=== PATIENT | female | born 1990 | race Caucasian/White ===

== ENCOUNTER 2022-07-21 15:14 | Outpatient (CLI) | payer BC, SELFPAY ==
--- NOTE | 2022-07-21 15:00 | USCV_ITS ---
Susana Ramos Age: 32 Gender: F : 1990 Exam Date: 07/21/2022 15:30 Ordering Phys: Lizette Del Rio MD ([email or web address]) Technologist: Jose Murry Exam Location: [facility] Indication: Pots syndrome, arrthymia BP: 100 / 60 HR: 64 Rhythm: Sinus Technical Quality: Good MEASUREMENTS (Male / Female) Normal Values 2D ECHO LV Diastolic Diameter PLAX 4.0 cm 4.2 - 5.9 / 3.9 - 5.3 cm LV Systolic Diameter PLAX 2.7 cm IVS Diastolic Thickness 0.9 cm 0.6 - 1.0 / 0.6 - 0.9 cm IVS Systolic Thickness 1.1 cm LVPW Diastolic Thickness 1.0 cm 0.6 - 1.0 / 0.6 - 0.9 cm LVPW Systolic Thickness 1.5 cm LVOT Diameter 1.8 cm LV Ejection Fraction 2D Teich 61.4 % LV Ejection Fraction MOD 2C 73.9 % LV Ejection Fraction 2C AL 74.4 % LA Diameter 2.9 cm IVC Diameter 1.4 cm M-MODE Aortic Annulus Diameter 3.3 cm LA Ao Ratio MM 1.0 MV E Point Septal Separation 0.9 cm DOPPLER AV Peak Velocity 97.0 cm/s LVOT Peak Velocity 90.0 cm/s AV Area Cont Eq vti 2.2 cm squared AV Area Cont Eq pk 2.5 cm squared MV Area PHT 5.0 cm squared Mitral E to A Ratio 1.2 MV E' Velocity 43.5 cm/s Mitral E to MV E' Ratio 4.2 Mitral E to LV E' Lateral Ratio 4.0 Mitral E to LV E' Septal Ratio 4.3 TR Peak Velocity 266.0 cm/s TR Peak Gradient 28.3 mmHg TV Peak E Velocity 95.0 cm/s Right Atrial Pressure 3.0 mmHg Pulmonary Artery Systolic Pressu 31.3 mmHg RV Acceleration Time 0.2 s FINDINGS Left Ventricle Normal left ventricular size, systolic function and wall thickness, with no regional wall motion abnormalities. Left ventricular ejection fraction is estimated at 65 %. Normal diastolic function. Right Ventricle Normal right ventricular size and systolic function. Right ventricular systolic pressure 31.3 mmHg. Right Atrium Normal right atrial size. Left Atrium Normal left atrial size. Mitral Valve Structurally normal mitral valve. No mitral valve stenosis. No mitral valve regurgitation. Aortic Valve Structurally normal trileaflet aortic valve. No aortic valve stenosis. No aortic valve regurgitation. Tricuspid Valve Structurally normal tricuspid valve. No tricuspid valve stenosis. Trace tricuspid valve regurgitation. Pulmonic Valve Structurally normal pulmonic valve. No pulmonary valve stenosis. No pulmonary valve regurgitation. Pericardium No pericardial effusion. Aorta Normal size aortic root and proximal ascending aorta. IVC Normal IVC dimension with >50% respiratory change of the inferior vena cava. CONCLUSIONS 1. Normal left ventricular size, systolic function and wall thickness, with no regional wall motion abnormalities. Left ventricular ejection fraction is estimated at 65 %. Normal diastolic function. 2. Normal right ventricular size and systolic function. 3. No significant valvular abnormality. 4. No prior similar studies to compare. Lizette Del Rio MD (Electronically Signed) Final Date: 23 July 2022 05:58 S
== END 2022-07-21 15:15 | disposition home or self-care (01) ==
PROVIDERS: PCP Nurse Practitioner Family; Visit Provider Internal Medicine Cardiovascular Disease
DX: R06.02 Shortness of breath (principal); I49.9 Cardiac arrhythmia, unspecified; G90.A Postural orthostatic tachycardia syndrome [POTS]
CPT/HCPCS: 93306

== ENCOUNTER 2025-02-07 16:45 | Emergency (ER) | payer OTHER, SELFPAY ==
--- OUTSIDE RECORDS SUMMARY | 2014-01-11 19:00 | XMS_ITS | Continuity of Care Document ---
Author Organization [facility] Address [address] [place] [address] Phone Care Team Providers Care It Help Desk Manager Name Role Phone Chinedu De Oliveira MD Unavailable Unavailable Procedures Procedure Date EMERGENCY DEPT VISIT EMERGENCY DEPT VISIT ANTEPARTUM VISIT HOSPITAL DISCHARGE DAY INPATIENT CONSULTATION HOSPITAL DISCHARGE DAY SUBSEQUENT HOSPITAL CARE SUBSEQUENT HOSPITAL CARE INPATIENT CONSULTATION INITIAL PREG RELATED VISIT INITIAL ASSESSMENT FOLLOW UP NUTRITION CLIENT ORIENTATION TB INTRADERMAL TEST EMERGENCY DEPT VISIT Advance Directives Directive Yes / No Effective Date File Name No Information Encounters Encounter Description Practice Location Reason(s) For Visit Diagnoses Date Provider Providers Copied on Encounter EMERGENCY DEPT VISIT [facility], [address], [place], [id number], [place] tel:[phone] [facility] No Information Yennifer Che. [address], [place], [id number], [place]. tel:[phone] [address] DEPT VISIT [facility], [address] [facility], [place], [id number], [place] tel:[phone] [facility] No Information Garrett Roberson. [address], [place], [id number], [place]. tel:[phone] [facility], [address], [place], [id number], [place] tel:[phone] [facility] No Information Mark Brown. [address], [place], [place], [id number], [place]. tel:[phone]GE DAY [facility], [address], [place], [id number], [place] tel:[phone] [facility] In Patient No Information Chin Cuellar. [address], [place], [place], [id number], [place]. tel:[phone] [facility], [address], [place], [id number], [place] tel:[phone] [facility] In Patient No Information Mark Brown. [address], [place], [id number], [place]. tel:[phone] [address]PITAL CARE [facility], [address], [place], [id number], [place] tel:[phone] [facility] In Patient No Information Chin Cuellar. [address], [place], [place], [id number], [place]. tel:[phone] Referring Provider: Alisa Neely, [address], [place], [address]. tel:[phone] [facility], [address], [place], [id number], [place] tel:[phone] [facility] In Patient No Information Chin Cuellar. [address], [place], [place], [id number], [place]. tel:[phone] Referring Provider: Alisa Neely, [address], [place], [address]. tel:[phone] [facility], [address], [place], [id number], [place] tel:[phone] [facility] No Information Mark Brown. [address] [facility], [place], [id number], [place]. tel:[phone] Referring Provider: Stephanie Flores, [address], [place], [address]. tel:[phone]PT VISIT [facility], [address] [facility], [place], [id number], tel:[phone] [facility] No Information Thalia Maria. [address] [facility] [facility], [place], [id number], [place]. tel:[phone] Family History Family Member Type Diagnosis Age At Onset No Information Payers Payer name Insurance type Covered democrat ID Authorchris arguetascott(s) [employer] [id number] Social History Type Description Quantity Date Captured Comments Sex Female Smoking Status No Information Chief Complaint And Reason For Visit No Information Reason For Referral Reason For Referral No Information History Of Present Illness Encounter Date Complaint History Of Prese nt Illness No Information Functional Status Date Functional Assessmen t No Information Instructions Date Instruction Additional Infor mation No Information Assessments Type Assessment Date No Information Patient Care Teams Name Effective Dates (start - stop) Status Members No Information
--- OUTSIDE RECORDS SUMMARY | 2025-02-02 09:19 | XMS_ITS | Encounter Summary ---
Author Organization [facility] Address [address] [place] [address] Care Team Providers Care Refrigeration Mechanic Name Role Phone Yossi Apple MD Primary Care Provider [phone] Reason for Visit * Auth/Cert (Routine) Specialty Diagnoses / Procedures Referred By Lemuel t Referred To Contact Perioperative Diagnoses Hemorrhoids, unspecified hemorrhoid type Hemorrhoids, unspecified hemorrhoid type Procedures TN HEMORRHOIDECTOMY XTRNL 2/> COLUMN/GROUP TN HEMORRHOIDECTOMY INT & XTRNL 2/> COLUMN/ELLA HEMORRHOIDECTOMY HEMORRHOIDECTOMY Óscar Lorenzo MD [address] [address] Phone: tel: fax: [facility] Operating Room [address] [place] [address] Phone: tel: fax: Referral ID Status Reason Start Date Expiration Date Visits Re quested Visits Authorized [id number] 1 1 Encounter Details Date Type Department Care Team (Latest Contact Info) Description 02/02/2025 9:19 AM CDT - 02/02/2025 1:30 PM CDT Hospital Encounter [facility] 3J Pre-Op [address] [place] [address] Óscar Lorenzo MD [address] [address] Hemorrhoids, unspecified hemorrhoid type Discharge Disposition: Home or Self Care Social History Tobacco Use Types Packs/Day Years Used Date Smoking Tobacco: Never Smokeless Tobacco: Never Alcohol Use Standard Drinks/Week Comments Never 0 (1 standard drink = 0.6 oz pur e alcohol) Comments No Sex and Gender Information Value Date Recorded Sex Assigned at Not on file 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 Gender Identity Not on file Sexual Orientation Not on file documented as of this encounter Last Filed Vital Signs Vital Sign Reading Time Taken Comments Blood Pressure 113/76 02/02/2025 1:00 PM CDT Pulse 69 02/02/2025 1:00 PM CDT Temperature 36 C (96.8 F) 02/02/2025 1:00 PM CDT Respiratory Rate 14 02/02/2025 1:00 PM CDT Oxygen Saturation 96% 02/02/2025 1:00 PM CDT Inhaled Oxygen Concentration - - Weight 61.8 kg (136 lb 3.9 oz) 02/02/2025 9:41 A M CDT Height 162.6 cm (5' 4 ) 02/02/2025 9:41 AM CDT Body Mass Index 23.39 02/02/2025 9:41 AM CDT documented in this encounter Discharge Instructions * Discharge Instructions* Diya Díaz NP - 02/02/2025 11:15 AM CDT Post-Operative Discharge Instructions If you feel you are experiencing a medical emergency - call 911 or present immediately to the nearest Emergency Department. Please follow up with SHYANN Xavier in 4 weeks, please call her office at to schedule your appointment. Typically follow up appointments are scheduled as in person visits, but if you feel that your appointment could be handled over the phone or by video chat please contact our office and we can make those arrangements. The Cue violeta can also allow you to send inquiries directly to us as well as submit pictures of wounds, etc. Often the violeta is the most efficient way to each our healthcare team. Ifyou don't have it already please search your violeta store for Cue. KEEP IN TOUCH WITH Cue Please consider using [email or web address] to communicate with Dr. Lorenzo's office. Messages are received in real time by the nurse as fast, or faster, than phone messages, and you may expect a prompt reply. DIET Return to your usual diet. It is normal not to have an appetite right after surgery - as long as you are tolerating liquids and staying hydrated, your desire for solid food will return in a few days. BOWEL FUNCTION Bowel movements should return a day or two after surgery. Pain medication can cause constipation. To avoid abdominal discomfort, take Metamucil 1 TBSP by mouth every day starting the day of surgery. If you have not had a bowel movment 2-3 days after surgery, take Milk of Magnesia 1 TBSP every 8 hours until BM occurs. Call if the above does not produce results. URINARY FUNCTION A small percentage of people who have anal or rectal surgery will temporarily have difficulty emptying their bladder. If you cannot urinate you must be seen urgently. If it is during normal business hours (8AM - 4:30PM), please call Dr. Lorenzo's office. After hours or on weekends [facility]. PAIN CONTROL Injected numbing medicine is often used in this type of surgery, the medication is designed to last2-3 days, you may notice an increase in pain as this medication wears off. Sitz baths (sitting in the bathtub with a few inches of warm water) as needed for comfort and afterBMs--may begin today Pain prescription In addition to your pain prescription you may also take ibuprofen (Advil, Motrin) 600mg every 8 hours (do not exceed one week of this medicine) ACTIVITY Avoid laying in bed, walk around! - this will help decrease the postoperative discomfort. We do not recommend the use of donut cushions to sit on, as they likely push any swelling towardsthe operative site. May return to work/school when you feel like you can adequately and safely do your job - moderate activity should not damage the surgery site. Once your pain level is tolerable you may return to work. Do not drive or operate machinery while taking pain medication. WHEN TO CALL Dr. Lorenzo @ If fever > 101.5 F OR shaking chills. Persistent nausea & vomiting that last more than a few hours and unable to keep liquids down. Some amount of intermittent bleeding is expected, for massive bleeding that does not stop go to theEmergency Department. Shortness of breath, leg(s) painful when walking or standing, leg(s) swelling or discolored. Severe constipation. WOUND CARE Apply dry dressing as needed until drainage resolves, feminine hygiene pads (even for men) can be useful for this purpose You may remove the dressing placed in the operating room for bowel movements or sitz baths as needed STITCHES You may feel sutures (stitches) on your bottom. They dissolve on their own between 1 and 6 weeks. If they are bothersome to you we can remove them at your follow-up appointment Sometimes these sutures break or the wound may open. This is rarely a problem and the wound will generally still heal well. AFTER HOURS Prescriptions are not refilled after business hours. If you are in need of additional medications, call the office on the next business day at [phone]. There is a physician on-call after hours for emergency reasons only. DO NOT SMOKE AND AVOID SECOND-HAND SMOKE. Tobacco smoke can delay the healing process by decreasingthe oxygen supply to your wound, & may increase your risk of infection. Smoking irritates the breathing passages and increases the risk of pneumonia, bronchitis, asthma and risk of blood clots. documented in this encounter Medications at Time of Discharge OTHERIndications:H emorrhoids, unspecified hemorrhoid type Sig: Apply pea sized amount (1 pump) to the rectal area 4 times daily 100 Gram 5 oxyCODONE-acetamin ophen (Percocet) 5-325 mg tabletIndications: Hemorrhoids, unspecified hemorrhoid type Take 1 Tablet by mouth every 4 hours as needed for Pain, Moderate. Max Daily Amount: 6 Tablets 30 Tablet 5 albuterol sulfate HFA 90 mcg/actuation aerosol inhaler Take 2 Puffs by inhalation every 6 hours as needed for Shortness of Breath or Wheezing. 8.5 Gram 1 5 OTHER Take by mouth daily. Turmeric Curcumin 2250mg of Organic Turmeric Curcumin 500mg of Curcuminoids Take 3 capsules daily with dinner MILK THISTLE ORAL Take 1,000 mg by mouth daily with breakfast. Dietary Supplement Capsule Take by mouth daily after lunch. Vegan K2+D3 OTHER Take 2,000 mg by mouth daily after lunch. Ascencion+D-Chiro Inositol vit E/E mix/tocotrienol/hb 122 (ADVANCED HIGH GAMMA E ORAL) Take by mouth daily with breakfast. Gamma E Take two capsles of a morning with food medical marijuana, for documentation purposes, Take 10 Tablets by mouth. Taking 3 different ones, Boost, Go & Sleep ketotifen fumarate (EYE ITCH RELIEF OP) by Ophthalmic route. EPINEPHrine (EPIPEN) 0.3 mg/0.3 mL Auto-Injector Inject 0.3 mg by subcutaneous injection see administration instructions. 4 fluticasone propionate (FLONASE) 50 mcg/spray [place], Suspension nasal inhaler Administer 1 [place] in each nostril 2 times daily. 4 SODIUM CHLORIDE ORAL Take by mouth. MAGNESIUM OXIDE ORAL Take by mouth. OTHER Skinny Bird- HUM sulfamethoxazole-t rimethoprim (BACTRIM DS) 800-160 mg tablet Take 1 Tablet by mouth 2 times daily for 7 days. 14 Tablet 5 02/07/20 25 documented as of this encounter H&P Notes * Óscar Lorenzo MD - 02/02/2025 11:08 AM CDT I have reviewed the last H&P and examined the patient today and there are no changes. documented in this encounter OR Notes * Operative Report - Óscar Lorenzo MD - 02/02/2025 8:50 PM CDT Preoperative diagnosis: Hemorrhoids Postoperative diagnosis: Mixed internal and external hemorrhoids Procedures performed: 1. Exam under anesthesia 2. Excisional hemorrhoidectomy of internal and external hemorrhoids, 3 columns Surgeon: Óscar Lorezno M.D. Dough Braker: none Anesthesia: GETA Findings: mixed hemorrhoids in the left lateral, right anterolateral, and right posterolateral positions. EBL: minimal Specimens: hemorrhoids Description of procedure: After obtaining informed consent the patient was taken to the OR, placed in a supine position and then underwent induction with general anesthesia. The patient was then flipped into the prone-jackknife position with all pressure points well padded. Tape was applied to the buttocks to provide lateral retraction and then the perineum was prepped and draped in a standard, sterile fashion. A digital rectal exam was performed and then the Marshall bi-valve retractor was used to carefully examine the anal canal. Findings as described above A perianal block with local anesthetic was performed. Internal and external hemorrhoidal groups were then removed from the left lateral, right anterolateral and right posterolateral positions. This was done using electrocautery to remove an ellipse of tissue starting just external to the anus and dissecting down to the level of the internal sphincter, which was carefully preserved, and removing the overlying hemorrhoidal cushion down into the anal canal removing the grossly redundant tissue. The defects were over-sewn with running-locking 3-0 vicryl suture. Additional redundant internal hemorrhoidal tissue was ablated with electrocautery. The anal canal was then re-examined with the Marshall bi-valve retractor, hemostasis was observed. More than ample tissue was observed between suture lines. The patient tolerated the procedure well. Óscar Lorenzo M.D. documented in this encounter Plan of Treatment Not on file documented as of this encounter Procedures Procedure Name Priority Date/Time Associated Diagnosis Comments TELEMETRY REPORT 02/04/2025 10:2 2 AM CDT PATHOLOGY Pathology 02/02/2025 11:28 AM CDT Hemorrhoids, unspecified hemorrhoid type TN HEMORRHOIDECTOMY INT & XTRNL 2/> COLUMN/ELLA 02/02/2025 10:40 AM CDT Hemorrhoids, unspecified hemorrhoid type TN HEMORRHOIDECTOMY XTRNL 2/> COLUMN/GROUP 02/02/2025 10:40 AM CDT Hemorrhoids, unspecified hemorrhoid type EKG 12-LEAD Routine 02/02/2025 10:31 AM CDT CBC WITHOUT DIFFERENTIAL Routine 025 10:28 AM CDT documented in this encounter Results * TELEMETRY REPORT (02/04/2025 10:22 AM CDT) us Provider Scanning ECG ORDERABLES Final Result * PATHOLOGY (02/02/2025 11:28 AM CDT) CASE REPORT Surgical Pathology Report Case: [id number] Authorizing Provider: Óscar Lorenzo MD Collected: 02/02/2025 11:28 AM Ordering Location: [facility] Received: 02/02/2025 12:48 PM Operating Room Pathologist: Chang Radford MD Specimen: Hemorrhoids 5 4:15 PM CDT [facility] FINAL DIAGNOSIS A. Hemorrhoids, excision - Hemorrhoids - Negative for dysplasia and malignancy Chang Radford MD [id number] 5 4:15 PM CDT [facility] at 1615 CDT GROSS DESCRIPTION A. Received in a container of formalin labeled Richard -hemorrhoids are 3 fragments of pale prado skin with underlying blood clot, measuring 3.7 x 2.6 x 1.3 cm. The specimen is serially sectioned to reveal dilated vascular structures. There are no discrete underlying lesion. Aeronautical Engineer sections are submitted in A1. Zoe Noe 5 4:15 PM CDT [facility] OPERATIVE PROCEDURE 1: HEMORRHOIDECTOMY 5 4:15 PM CDT [facility] CLINICAL INFORMATION Hemorrhoids, unspecified hemorrhoid type 5 4:15 PM CDT [facility] COMMENT The FXTrip voice-activated dictation system may have been used in the creation of this report. Inherent to this system is the possibility of errors in syntax, grammar, punctuation, or other areas that could impact interpretation. If there are interpretive questions about the report, please contact the performing pathologist. Unless gross only is specified in the diagnosis, the microscopic examination substantiates the above cited diagnosis. The performance characteristics of all immunohistochemical stains cited in this report (if any) were determined by the [facility] of [facility] in compliance with CLIA'88 regulations. Some of these tests rely on the use of analyte specific reagents and are subject to specific labeling requirements by the FDA. All controls show appropriate reactivity. This testing was developed by the [facility]. It has not been cleared or approved by the FDA. The FDA has determined that such clearance or approval is not necessary. 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 : 1990 Requested By: Order Number: [id number] Max MD: Sylwia Zepeda Measurements Intervals Ellery Rate: 60 P: 57 TN: 144 QRS: 53 QRSD: 82 T: 37 QT: 422 QTc: 422 Interpretive Statements Sinus rhythm with marked sinus arrhythmia Otherwise normal ECG Electronically Signed On 02-02-2025 19:19:16 CDT by Sylwia Zepeda Procedure Note Sylwia Zepeda MD - 02/02/[address] [address] Test Date: 2025-02-02 Pat Name: SUSANA ZAPATA Department: 12 Room: PREOP PHAS PREOP PHAS Gender: Female Riding Coach: [id number] : 1990 Requested By: Order Number: [id number] Reading MD: Sylwia Zepeda Measurements Intervals Ellery Rate: 60 P: 57 TN: 144 QRS: 53 QRSD: 82 T: 37 QT: 422 QTc: 422 Interpretive Statements Sinus rhythm with marked sinus arrhythmia Otherwise normal ECG Electronically Signed On 02-02-2025 19:19:16 CDT by Sylwia Zepeda us Óscar Lorenzo MD ECG ORDERABLES Final Result INTERFACE SYSTEM Refer to clinic/hospital department * (ABNORMAL) CBC WITHOUT DIFFERENTIAL (02/02/2025 10:28 AM CDT) [facility] WBC 4.6 4.5 - 11.0 K/uL 02/02/2025 10:46 AM CDT [facility] RBC 3.86(L) 4.20 - 5.40 M/uL 02/02/2025 10:46 AM [facility] HEMOGLOBIN 11.5(L) 12.0 - 16.0 g/dL 02/02/2025 10:46 AM [facility] HEMATOCRIT 35.5(L) 36.0 - 46.0 % 02/02/2025 10:46 AM [facility] MCV 92.0 84.0 - 103.0 fL 02/02/2025 10:46 AM [facility] MCH 29.8 27.0 - 34.0 pg 02/02/2025 10:46 AM [facility] MCHC 32.4 30.0 - 35.0 g/dL 02/02/2025 10:46 AM [facility] PLATELETS 211 140 - 440 K/uL 02/02/2025 10:46 AM [facility] MPV 10.3 8.9 - 12.8 fL 02/02/2025 10:46 AM [facility] RDW 13.0 11.0 - 14.5 % 02/02/2025 10:46 AM [facility] RDW-STDEV 43.5 37.0 - 54.0 fL 02/02/2025 10:46 AM [facility] Blood Venipuncture / Unknown 02/02/2025 10:28 AM CDT 02/02/2025 10:39 AM CDT us Óscar Lorenzo MD HEMATOLOGY ORDERABLES Final Res ult [facility] CLIA # [id number] [address] [place] [address] [place] [address] documented in this encounter Visit Diagnoses Diagnosis Hemorrhoids, unspecified hemorrhoid type- Primary documented in this encounter Administered Medications Inactive Administered Medications - up to 3 most recent administrations Medication Order MAR Action Action Date Dose Rate Site diphenhydrAMINE (BENADRYL) injection 12.5 mg 12.5 mg, IV, ONE TIME ONLY, 1 dose, On Sun02/02/25 at 1045, Routine, Pre-op Now Given 02/02/2025 10:39 AM CDT 12.5 mg diphenhydrAMINE (BENADRYL) injection 12.5 mg 12.5 mg, IV, POST-PROCEDURE ONCE PRN, 1 dose, Starting on Sun02/02/25 at 1124, Until Sun02/02/25 at 1849, Nausea/Emesis, Routine, PACU DIPHENHYDRAMINE 50 MG/ML INJECTION SOLUTION (CABINET OVERRIDE) 1 dose, Starting on Sun02/02/25 at 1037, Until Sun02/02/25 at 1039, Yue Estrada: cabinet override fentaNYL PF (SUBLIMAZE) 50 mcg/mL injection 50 mcg 50 mcg, IV, POST-PROCEDURE Q 3 MINUTES PRN, 4 doses, Starting on Sun02/02/25 at 1124, Until Sun02/02/25 at 1849, Pain (See admin instructions), Routine, PACU HYDROmorphone (PF) (DILAUDID) injection 0.5 mg 0.5 mg, IV, POST-PROCEDURE Q 5 MINUTES PRN, 4 doses, Starting on Sun02/02/25 at 1124, Until Sun02/02/25 at 1849, Pain, Routine, PACU lactated ringers infusion IV, at 75 mL/hr, CONTINUOUS, Starting on Sun02/02/25 at 0930, Until Sun02/02/25 at 1849, Stat, Pre-op Continue from Pre-Op 02/02/2025 11:04 AM CDT 75 mL/hr New Bag 02/02/2025 10:35 AM CDT 75 mL/hr lactated ringers infusion IV, at 125 mL/hr, POST-PROCEDURE CONTINUOUS, Starting on Sun02/02/25 at 1130, Until Sun02/02/25 at 1849, Routine, PACU naloxone (NARCAN) 0.4 mg/mL injection 0.1-0.4 mg 0.1-0.4 mg, IV, SEE ADMIN INSTRUCTIONS, Starting on Sun02/02/25 at 1124, Until Sun02/02/25 at 1849, Routine, PACU ondansetron (ZOFRAN) 4 mg/2 mL injection 4 mg 4 mg, IV, EVERY 6 HOURS PRN, Starting on Sun02/02/25 at 1114, Until Sun02/02/25 at 1849, Nausea/Emesis, Routine Given 02/02/2025 11:22 AM CDT 4 mg ondansetron (ZOFRAN) 4 mg/2 mL injection 4 mg 4 mg, IV, POST-PROCEDURE ONCE PRN, 1 dose, Starting on Sun02/02/25 at 1124, Until Sun02/02/25 at 1849, Nausea/Emesis, Routine, PACU oxyCODONE-acetaminophen (PERCOCET) 5-325 mg per tablet 2 Tablet 2 Tablet, Oral, EVERY 4 HOURS PRN, Starting on Sun02/02/25 at 1114, Until Sun02/02/25 at 1849, Pain (See admin instructions), Routine Given 02/02/2025 12:36 PM CDT 1 Tablet sodium chloride flush injection 10 mL 10 mL, IV, SEE ADMIN INSTRUCTIONS, Starting on Sun02/02/25 at 0928, Until Sun02/02/25 at 1849, Routine, Pre-op documented in this encounter Active and Recently Administered Medications Times are shown in CDT. Scheduled Medication Order 01/31/2025 02/01/2025 02/02/2025 diphenhydrAMINE (BENADRYL) injection 12.5 mg (COMPLETED) 12.5 mg, IV, ONE TIME ONLY, 1 dose, On Sun02/02/25 at 1045, Routine, Pre-op Now 1039 (Given - Provid er: Yue Estrada RN) naloxone (NARCAN) 0.4 mg/mL injection 0.1-0.4 mg 0.1-0.4 mg, IV, SEE ADMIN INSTRUCTIONS, Starting on Sun02/02/25 at 1124, Until Sun02/02/25 at 1849, Routine, PACU sodium chloride flush injection 10 mL 10 mL, IV, SEE ADMIN INSTRUCTIONS, Starting on Sun02/02/25 at 0928, Until Sun02/02/25 at 1849, Routine, Pre-op Continuous Medication Order 01/31/2025 02/01/2025 02/02/2025 lactated ringers infusion IV, at 75 mL/hr, CONTINUOUS, Starting on Sun02/02/25 at 0930, Until Sun02/02/25 at 1849, Stat, Pre-op 0930 (Due)1035 (New Bag - Provider: Yue Estrada RN)1104 (Continue from Pre-Op - Provider: Melinda Sanchez CRNA)1151 (Fluid Volume - Provider: Melinda Sanchez CRNA)1849 (Due: Order Ending - Provider: PROVIDER, DISCHARGE PATIENT - Comment: [Order ends at this time. Document the following action when infusion is complete: Stopped]) lactated ringers infusion IV, at 125 mL/hr, POST-PROCEDURE CONTINUOUS, Starting on Sun02/02/25 at 1130, Until Sun02/02/25 at 1849, Routine, PACU 1130 (Due) PRN Medication Order 01/31/2025 02/01/2025 02/02/2025 bacitracin-polymyxin B 500-10,000 unit/gram topical ointment (CANCELED) INTRA-PROCEDURE PRN, Starting on Sun02/02/25 at 1137, Until Sun02/02/25 at 1147, Routine, Intra-op 1137 (Given - Provid er: Óscar Lorenzo MD) BUPivacaine-EPINEPHrine (PF) (SENSORCAINE MPF WITH EPI) 0.5 %-1:200,000 injection (CANCELED) INTRA-PROCEDURE PRN, Starting on Sun02/02/25 at 1126, Until Sun02/02/25 at 1147, Routine, Intra-op 1126 (Given - Provid er: Óscar Lorenzo MD) diphenhydrAMINE (BENADRYL) injection 12.5 mg 12.5 mg, IV, POST-PROCEDURE ONCE PRN, 1 dose, Starting on Sun02/02/25 at 1124, Until Sun02/02/25 at 1849, Nausea/Emesis, Routine, PACU diphenhydrAMINE (BENADRYL) injection 12.5 mg 12.5 mg, IV, POST-PROCEDURE ONCE PRN, Starting on Sun02/02/25 at 1124, Until Sun02/02/25 at 1323, Itching, Routine, PACU fentaNYL PF (SUBLIMAZE) 50 mcg/mL injection 50 mcg 50 mcg, IV, POST-PROCEDURE Q 3 MINUTES PRN, 4 doses, Starting on Sun02/02/25 at 1124, Until Sun02/02/25 at 1849, Pain (See admin instructions), Routine, PACU HYDROmorphone (PF) (DILAUDID) injection 0.5 mg 0.5 mg, IV, POST-PROCEDURE Q 5 MINUTES PRN, 4 doses, Starting on Sun02/02/25 at 1124, Until Sun02/02/25 at 1849, Pain, Routine, PACU ondansetron (ZOFRAN) 4 mg/2 mL injection 4 mg 4 mg, IV, EVERY 6 HOURS PRN, Starting on Sun02/02/25 at 1114, Until Sun02/02/25 at 1849, Nausea/Emesis, Routine 1122 (Given - Provid er: Melinda Sanchez CRNA) ondansetron (ZOFRAN) 4 mg/2 mL injection 4 mg 4 mg, IV, POST-PROCEDURE ONCE PRN, 1 dose, Starting on Sun02/02/25 at 1124, Until Sun02/02/25 at 1849, Nausea/Emesis, Routine, PACU oxyCODONE-acetaminophen (PERCOCET) 5-325 mg per tablet 2 Tablet 2 Tablet, Oral, EVERY 4 HOURS PRN, Starting on Sun02/02/25 at 1114, Until Sun02/02/25 at 1849, Pain (See admin instructions), Routine 1236 (Given - Provid er: Jessica Kinsey RN) documented in this encounter Care Teams Refrigeration Mechanic Relationship Specialty Start Date End Date Yossi Apple MD [address] [place] [id number] PCP - General Family Practice 05/06/24 documented as of this encounter
--- OUTSIDE RECORDS SUMMARY | 2025-02-02 10:40 | XMS_ITS | Encounter Summary ---
Author Organization [facility] Address [address] [place] [address] Care Team Providers Care Ceramic Saw Tender Name Role Phone Yossi Apple MD Primary Care Provider [phone] Reason for Visit * Auth/Cert (Routine) Specialty Diagnoses / Procedures Referred By Lemuel t Referred To Contact Perioperative Diagnoses Hemorrhoids, unspecified hemorrhoid type Hemorrhoids, unspecified hemorrhoid type Procedures MO HEMORRHOIDECTOMY XTRNL 2/> COLUMN/GROUP [place] HEMORRHOIDECTOMY INT & XTRNL 2/> COLUMN/ELLA HEMORRHOIDECTOMY HEMORRHOIDECTOMY Óscar Lorenzo MD [address] [address] Phone: tel: fax: [facility] Operating Room [address] [place] [address] Phone: tel: fax: Referral ID Status Reason Start Date Expiration Date Visits Re quested Visits Authorized [id number] 1 1 Encounter Details Date Type Department Care Team (Late st Contact Info) Description 02/02/2025 10:40 AM CDT - 02/02/2025 11:53 AM CDT Surgery [facility] Operating Room [facility] [place] [address] Óscar Lorenzo MD [address] [address] HEMORRHOIDECTOMY Surgery Details Date/Time Status Location OR Service Patient Class Case Cl ass Case Type Trauma Case? 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 The [employer] violeta can also allow you to send inquiries directly to us as well as submit pictures of wounds, etc. Often the violeta is the most efficient way to each our healthcare team. Ifyou don't have it already please search your violeta store for [employer]. KEEP IN TOUCH WITH [email or web address] Please consider using [email or web address] to communicate with Dr. Lorenzo's office. Messages [...] or on [facility] or [facility] department. PAIN CONTROL Injected [...] instructions. 4 fluticasone propionate (FLONASE) 50 mcg/spray [place], Suspension nasal inhaler Administer 1 [place] in each nostril 2 times daily. 4 [...] and external hemorrhoids, 3 columns Surgeon: Óscar Lorenzo M.D. Senior Mechanical Engineer: none Anesthesia: GETA Findings: mixed hemorrhoids in [...] 11:28 AM CDT Hemorrhoids, unspecified hemorrhoid type MO HEMORRHOIDECTOMY INT & XTRNL 2/> COLUMN/LELA 02/02/2025 10:40 AM CDT Hemorrhoids, unspecified hemorrhoid type MO HEMORRHOIDECTOMY XTRNL 2/> COLUMN/GROUP 02/02/2025 10:40 AM CDT Hemorrhoids, unspecified hemorrhoid type EKG 12-LEAD Routine 02/02/2025 10:31 AM CDT CBC WITHOUT DIFFERENTIAL Routine 025 10:28 AM CDT documented in this encounter Results * TELEMETRY REPORT (02/04/2025 10:22 AM CDT) us Provider Scanning ECG ORDERABLES Final Result * PATHOLOGY (02/02/2025 11:28 AM CDT) CASE REPORT Surgical Pathology Report Case: [id number] Authorizing Provider: Óscar Lorenzo MD Collected: 02/02/2025 11:28 AM Ordering Location: [facility] Received: 02/02/2025 12:48 PM Operating Room Pathologist: Chang Radford MD Specimen: Hemorrhoids 5 4:15 PM CDT [facility] FINAL DIAGNOSIS A. Hemorrhoids, excision - Hemorrhoids - Negative for dysplasia and malignancy Chang Radford MD [id number] 5 4:15 PM CDT [facility] at 1615 CDT GROSS DESCRIPTION A. Received in a container of formalin labeled Richard -hemorrhoids are 3 fragments of pale prado skin with underlying blood clot, measuring 3.7 x 2.6 x 1.3 cm. The specimen is serially sectioned to reveal dilated vascular structures. There are no discrete underlying lesion. Fire Prevention Captain sections are submitted in A1. Zoe Noe 5 4:15 PM CDT [facility] OPERATIVE PROCEDURE 1: HEMORRHOIDECTOMY 5 4:15 PM CDT [facility] CLINICAL INFORMATION Hemorrhoids, unspecified hemorrhoid type 5 4:15 PM CDT [facility] COMMENT The [employer] voice-activated dictation system may have been used [...] determined by the [facility] of [facility] in compliance with CLIA'88 regulations. Some of these tests rely on the use of analyte specific reagents and are subject to specific labeling requirements by the FDA. All controls show appropriate reactivity. This testing was developed by the [facility]ohist[facility] of [facility]. It has not been cleared or approved by the FDA. The FDA has determined that such clearance or approval is not necessary. 4:15 PM CDT [facility] Tissue (Hemorrhoids) Collection / Unknown 02/02/2025 11:28 AM CDT 02/02/2025 12:48 PM CDT us Óscar Lorenzo MD PATHOLOGY/CYTOLOGY ORDERABLES F inal Result [facility] CLIA # [id number] [address] [place] [address] * EKG 12-LEAD (02/02/2025 10:31 AM CDT) 02/02/2025 10:3 1 AM CDT Narrative INTERFACE SYSTEM - 02/02/2025 7:19 PM CDT [address] [address] Test Date: 2025-02-02 Pat Name: SUSANA RAMOS Department: 12 Room: [facility] Gender: Female Director [employer]: [id number] : 1990 Requested By: Order Number: [id number] Reading MD: Sylwia Zepeda Measurements Intervals [place]ler Rate: 60 P: 57 MO: 144 QRS: 53 QRSD: 82 T: 37 QT: 422 QTc: 422 Interpretive Statements Sinus rhythm with marked sinus arrhythmia Otherwise normal ECG Electronically Signed On 02-02-2025 19:19:16 CDT by Sylwia Zepeda Procedure Note Sylwia Zepeda MD - 02/02/2025 [place] [id number] Test Date: 2025-02-02 Pat Name: SUSANA RAMOS Department: 12 Room: [facility] Gender: Female Director [employer]: [id number] : 1990 Requested By: Order Number: [id number] Reading MD: Sylwia Zepeda Measurements Intervals [place] Rate: 60 P: 57 MO: 144 QRS: 53 QRSD: 82 T: 37 QT: 422 QTc: 422 Interpretive Statements Sinus rhythm with marked sinus arrhythmia Otherwise normal ECG Electronically Signed On 02-02-2025 19:19:16 CDT by Sylwia Zepeda us Óscar Lorenzo MD ECG ORDERABLES Final Result INTERFACE SYSTEM Refer to clinic/hospital department * (ABNORMAL) CBC WITHOUT DIFFERENTIAL (02/02/2025 10:28 AM CDT) Pathologist [facility] WBC 4.6 4.5 - 11.0 K/uL 02/02/2025 10:46 AM CDT [facility] RBC 3.86(L) 4.20 - 5.40 M/uL 02/02/2025 10:46 AM CDT [facility] HEMOGLOBIN 11.5(L) 12.0 - 16.0 g/dL 02/02/2025 10:46 AM CDT [facility] HEMATOCRIT 35.5(L) 36.0 - 46.0 % 02/02/2025 10:46 AM CDT [facility] MCV 92.0 84.0 - 103.0 fL 02/02/2025 10:46 AM CDT [facility] MCH 29.8 27.0 - 34.0 pg 02/02/2025 10:46 AM CDT [facility] MCHC 32.4 30.0 - 35.0 g/dL 02/02/2025 10:46 AM CDT [facility] PLATELETS 211 140 - 440 K/uL 02/02/2025 10:46 AM CDT [facility] MPV 10.3 8.9 - 12.8 fL 02/02/2025 10:46 AM CDT [facility] RDW 13.0 11.0 - 14.5 % 02/02/2025 10:46 AM CDT [facility] RDW-STDEV 43.5 37.0 - 54.0 fL 02/02/2025 10:46 AM CDT [facility] Blood Venipuncture / Unknown 02/02/2025 10:28 AM CDT 02/02/2025 10:39 AM CDT us Óscar Lorenzo MD HEMATOLOGY ORDERABLES Final Res ult [facility] CLIA # [id number] [facility] [address] documented in this encounter Visit Diagnoses Diagnosis Hemorrhoids, unspecified hemorrhoid type- Primary Hemorrhoids, unspecified hemorrhoid type documented in this encounter Administered Medications Inactive Administered Medications - up to 3 most recent administrations Medication Order MAR Action Action Date Dose Rate Site bacitracin-polymyxin B 500-10,000 unit/gram topical ointment INTRA-PROCEDURE PRN, Starting on Sun02/02/25 at 1137, Until Sun02/02/25 at 1147, Routine, Intra-op Given 02/02/2025 11:37 AM CDT 5 Grams Operative Site BUPivacaine-EPINEPHr ine (PF) (SENSORCAINE MPF WITH EPI) 0.5 %-1:200,000 injection INTRA-PROCEDURE PRN, Starting on Sun02/02/25 at 1126, Until Sun02/02/25 at 1147, Routine, Intra-op Given 02/02/2025 11:26 AM CDT 30 mL Operative Site diphenhydrAMINE (BENADRYL) injection 12.5 mg 12.5 [...] Sun02/02/25 at 1037, Until Sun02/02/25 at 1039, Sean Yue L: cabinet override fentaNYL PF (SUBLIMAZE) 50 mcg/mL [...] RN) documented in this encounter Care Teams Ceramic Saw Tender Relationship Specialty Start Date End Date Yossi Apple MD [address] [place] [phone] PCP - General Family Practice 05/06/24 documented as of this encounter
--- OUTSIDE RECORDS SUMMARY | 2025-02-02 11:04 | XMS_ITS | Encounter Summary ---
Author Organization [facility] Address [address] [place] [address] Care Team Providers Care Pharmacy Intern Name Role Phone Yossi Apple MD Primary Care Provider Reason for Visit * Auth/Cert (Routine) Specialty Diagnoses / Procedures Referred By Lemuel t Referred To Contact Perioperative Diagnoses Hemorrhoids, unspecified hemorrhoid type Hemorrhoids, unspecified hemorrhoid type Procedures OR HEMORRHOIDECTOMY XTRNL 2/> COLUMN/GROUP OR HEMORRHOIDECTOMY INT & XTRNL 2/> COLUMN/ELLA HEMORRHOIDECTOMY HEMORRHOIDECTOMY Óscar Lorenzo MD [address] [place] [address] Phone: tel: fax: [facility] Operating Room [address] [place] [address] Phone: tel: fax: Referral ID Status Reason Start Date Expiration Date Visits Re quested Visits Authorized [id number] 1 1 Encounter Details Date Type Department Care Team (Late st Contact Info) Description 02/02/2025 11:04 AM CDT Anesthesia Event [facility] Operating Room [address] [place] [address] Deng Zavala MD [address] [place] [phone] Melinda Sanchez CRNA [address] [place] [phone] Anesthesia Record Procedure Summary Procedure Name Responsible Anesthesiologist Anesthesia Start Time Anesthesia Stop Time HEMORRHOIDECTOMY (Anus) Deng Zavala MD 02/02/25 1 104 02/02/25 1151 Events Date Time Event Comment 02/02/2025 1059 AN Equip Check Anesthesia eq uipment and materials checked in accordance with local policy. 1104 An Start 1107 In Room This event disp lays the In Room time documented in the Surgical Log. Deleting this event will not remove it from the log but will remove it from the Grid and Graph timeline. 1107 An Start Data 1107 Pre-Induction Immediate pre- induction anesthetic assessment performed. Vital signs as noted on graphic. 1110 An Induction 1111 An Intubation 1112 Anesthesia Ready 1124 1126 Procedure Start This event d isplays the Procedure Start time documented in the Surgical Log. Deleting this event will not remove it from the log but will remove it from the Grid and Graph timeline. 1137 Procedure Stop This event di splays the Procedure Stop time documented in the Surgical Log. Deleting this event will not remove it from the log but will remove it from the Grid and Graph timeline. 1147 An Extubation Emergence unev entful Awake, spontaneous respirations. Adequate muscle strength demonstrated Adequate tidal volume. Orapharynx suctioned. Extubated with positive pressure ventilation. 1147 an stop data 1147 Out of Room This event disp lays the Out of Room time documented in the Surgical Log. Deleting this event will not remove it from the log but will remove it from the Grid and Graph timeline. 1151 An Stop 1151 Hand-off to Receiving Clinic robert Meds Name Total midazolam (VERSED) 1 mg/mL injection 2 mg propofol (DIPRIVAN) 10 mg/mL injection 120 mg lidocaine PF (XYLOCAINE MPF) 2% injectio n 5 mL fentaNYL (SUBLIMAZE) PF 50 mcg/mL injection 125 mcg rocuronium (ZEMURON) 10mg/mL injection 5 0 mg dexamethasone (DECADRON) 4 mg/mL injecti on 8 mg ondansetron (ZOFRAN) 4 mg/2 mL injection 4 mg 4 mg ketorolac (TORADOL) 30 mg/mL injection 10 mg sugammadex (BRIDION) 100 mg/mL injection 200 mg lactated ringers infusion 400 mL * Agents Name Air O2 O2 * Blood No blood administrations on file. Lines, Drains, and Airways Type Details Placement Removal Peripheral IV Pre-Hospital Start: No; Orientation: Left; Location: Arm; Device: Angiocath; Gauge: 20 gauge; Needle Length: 1 in length; Insertion Attempts: 1; Patient Tolerance: tolerated well; Removal Indication: no longer indicated 02/02/25 1029 by Yue Estrada RN 02/02/25 1230 by Saige Tsai RN Endotracheal Airway Type: ETT; Size: 7; Attempts: 1; Verification: Auscultated bilateral breath sounds, Equal chest movement, Continuous waveform capnography 02/02/25 1111 by Melinda Sanchez CRNA 02/02/25 1147 by Melinda Sanchez CRNA Peripheral IV Pre-Hospital Start: No; Orientation: Anterior, Left; Location: Wrist; Device: Angiocath; Gauge: 18 gauge; Needle Length: 1.16 in length; Insertion Attempts: 1; Patient Tolerance: tolerated well; Removal Indication: no longer indicated 02/02/25 1121 by Melinda Sanchez CRNA 02/02/25 1230 by Saige Tsai RN Incision 02/02/25; 1138; surgical incision; other (comment); perirectal; 02/03/25; 0449 02/02/25 1138 by Bree Merrill RN 02/03/25 0449 by PROVIDER, DISCHARGE PATIENT documented in this encounter Social History Tobacco Use Types Packs/Day Years Used Date Smoking Tobacco: Never Smokeless Tobacco: Never Alcohol Use Standard Drinks/Week Comments Never 0 (1 standard drink = 0.6 oz pur e alcohol) Comments No Sex and Gender Information Value Date Recorded Sex Assigned at Not on file 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 Gender Identity Not on file Sexual Orientation Not on file documented as of this encounter OR Notes * Anesthesia Postprocedure Evaluation - Deng Zavala MD - 02/02/2025 12:35 PM CDT Post Anesthesia Evaluation Vitals: Vitals Value Taken Time BP 108/72 02/02/25 1220 Temp 36.2 ??C 02/02/25 1150 Resp 13 02/02/25 1220 SpO2 98 % 02/02/25 1220 Pulse 71 02/02/25 1220 Heart Rate 72 bpm 02/02/25 1220 Pain Rating: Pain Rating: Rest: 10 (itiching) (02/02/25 1013) Presence of Pain: sleeping (02/02/25 1215) Score: FLACC (rest): 0 (02/02/25 1150) Anesthesia Post Evaluation Patient location during evaluation: PACU Patient participation: patient was able to participate in the post op evaluation Level of consciousness: 1 = not alert but arousable by minor stimulation to obey, answer or respond(age appropriate) Pain management: adequate Airway patency: patent Nausea or Vomiting: none Cardiovascular status: regular rate and rhythm Respiratory status: no respiratory symptoms Hydration status: well hydrated No notable events documented. Deng Zavala MD * Anesthesia Handoff - Melinda Sanchez CRNA - 02/02/2025 11:51 AM CDT Post-Anesthetic transfer of care report elements to appropriate post-anesthesia recovery environment completed in accordance with procedure. I completed my handoff to the receiving nurse during which we: 1. Identified the patient 2. Identified the responsible provider 3. Reviewed the pertinent medical history 4. Discussed the surgical course 5. Reviewed intra-op anesthesia management and issues during anesthesia 6. Set expectations for post-procedure period 7. Orders as necessary and appropriate for continuation of care are present in Epic. 8. Allowed opportunity for questions and acknowledgement of understanding. Vital Signs: Vitals Value Taken Time BP 122/81 02/02/25 1150 Temp Resp 17 02/02/25 1151 SpO2 100 % 02/02/25 1151 Pulse 98 02/02/25 1151 Heart Rate 98 bpm 02/02/25 1151 Vitals shown include unfiled device data. 11:51 AM Melinda Sanchez CRNA * Anesthesia Preprocedure Evaluation - Deng Zavala MD - 02/02/2025 11:23 AM CDT Relevant Problems No relevant active problems Anesthesia Evaluation Patient summary reviewed and Nursing notes reviewed Airway Mallampati: II TM distance: >3 FB Neck ROM: full Dental - normal exam Pulmonary - negative ROS and normal exam (-) shortness of breath Cardiovascular - normal exam (+) dysrhythmias (-) angina ROS comment: POTS Neuro/Psych - negative ROS GI/Hepatic/Renal Endo/Other Abdominal - normal exam Anesthesia History No history of anesthetic complications. Anesthesia Plan ASA Final: 2 General Intravenous induction Oral ETT airway maintenance NPO status > 8 hours Anesthetic plan and risks discussed with Patient. Plan discussed with Dye Machine Tender. Post-op Pain Control Plan to use IV or IM medication for post-op pain control. Plan for postoperative opioid use Smoking Compliance patient did not smoke on day of surgery * Anesthesia Procedure Notes - Melinda Sanchez CRNA - 02/02/2025 11:21 AM CDTAssociated Order(s): Airway Airway Date/Time: 02/02/2025 11:11 AM Location: OR Plan: routine intubation Patient Identity Confirmed by: Verbally with patient and armband Airway: not difficult Staffing Performed: KIARRA/CAA Authorized by: Deng Zavala MD Performed by: Melinda Sanchez CRNA Indications and Patient Condition: Indications for Airway Management: Anesthesia Sedation Level: general anesthesia Preoxygenated: yes Patient Position: Sniffing Mask Difficulty Assessment: 1 - vent by mask Plan to extubate at end of case: Yes Final Airway Details: Final Airway Type: Endotracheal airway ETT Cuffed: Yes Technique Used for Successful ETT Placement: Direct laryngoscopy Devices/Methods Used in Placement: Intubating stylet Blade Type: straight blade Blade Size: 2 Insertion Site: Oral ETT Size (mm): 7.0 Measured from: Teeth ETT to Teeth (cm): 21 Tube secured with: Tape Placement Verified by: auscultation, end tidal CO2 and chest rise Cormack-Lehane Classification: Grade I - full view of glottis Number of Attempts at Approach: 1 Additional Procedure Information: atraumatic and dentition unchanged documented in this encounter Plan of Treatment Not on file documented as of this encounter Procedures Procedure Name Priority Date/Time Associated Diagnosis Comments OR ANES INSERT ENDOTRACHEAL AIRWAY Routine 02/02/2025 11:11 AM CDT documented in this encounter Results * OR ANES INSERT ENDOTRACHEAL AIRWAY (02/02/2025 11:11 AM CDT) Narrative Melinda Sanchez CRNA - 02/02/2025 11:11 AM CDT Melinda Sanchez CRNA 02/02/2025 11:21 AM Airway Date/Time: 02/02/2025 11:11 AM Location: OR Plan: routine intubation Patient Identity Confirmed by: Verbally with patient and armband Airway: not difficult Staffing Performed: KIARRA/CAA Authorized by: Deng Zavala MD Performed by: Melinda Sanchez CRNA Indications and Patient Condition: Indications for Airway Management: Anesthesia Sedation Level: general anesthesia Preoxygenated: yes Patient Position: Sniffing Mask Difficulty Assessment: 1 - vent by mask Plan to extubate at end of case: Yes Final Airway Details: Final Airway Type: Endotracheal airway ETT Cuffed: Yes Technique Used for Successful ETT Placement: Direct laryngoscopy Devices/Methods Used in Placement: Intubating stylet Blade Type: straight blade Blade Size: 2 Insertion Site: Oral ETT Size (mm): 7.0 Measured from: Teeth ETT to Teeth (cm): 21 Tube secured with: Tape Placement Verified by: auscultation, end tidal CO2 and chest rise Cormack-Lehane Classification: Grade I - full view of glottis Number of Attempts at Approach: 1 Additional Procedure Information: atraumatic and dentition unchanged Deng Zavala MD PROCEDURE/MINOR SURGICAL ORDER OZZY Final Result documented in this encounter Visit Diagnoses Not on filedocumented in this encounter Administered Medications Inactive Administered Medications - up to 3 most recent administrations Medication Order MAR Action Action Date Dose Rate Site dexAMETHasone (DECADRON) injection IV, INTRA-PROCEDURE PRN, Starting on Sun02/02/25 at 1122, Until Sun02/02/25 at 1151, Routine, Anesthesia Intra-op Given 02/02/2025 11:22 AM CDT 8 mg fentaNYL PF (SUBLIMAZE) 50 mcg/mL injection IV, INTRA-PROCEDURE PRN, Starting on Sun02/02/25 at 1110, Until Sun02/02/25 at 1151, Routine, Anesthesia Intra-op Given 02/02/2025 11:42 AM CDT 25 mcg Given 02/02/2025 11:10 AM CDT 100 mcg ketorolac (TORADOL) injection IV, INTRA-PROCEDURE PRN, Starting on Sun02/02/25 at 1145, Until Sun02/02/25 at 1151, Routine, Anesthesia Intra-op Given 02/02/2025 11:45 AM CDT 10 mg lactated ringers infusion IV, at 75 mL/hr, CONTINUOUS, Starting on Sun02/02/25 at 0930, Until Sun02/02/25 at 1849, Stat, Pre-op Continue from Pre-Op 02/02/2025 11:04 AM CDT 75 mL/hr New Bag 02/02/2025 10:35 AM CDT 75 mL/hr lidocaine PF 2% (XYLOCAINE MPF) injection IV, INTRA-PROCEDURE PRN, Starting on Sun02/02/25 at 1110, Until Sun02/02/25 at 1151, Routine, Anesthesia Intra-op Given 02/02/2025 11:10 AM CDT 5 mL midazolam (VERSED) injection IV, INTRA-PROCEDURE PRN, Starting on Sun02/02/25 at 1105, Until Sun02/02/25 at 1151, Routine, Anesthesia Intra-op Given 02/02/2025 11:05 AM CDT 2 mg ondansetron (ZOFRAN) 4 mg/2 mL injection 4 mg 4 mg, IV, EVERY 6 HOURS PRN, Starting on Sun02/02/25 at 1114, Until Sun02/02/25 at 1849, Nausea/Emesis, Routine Given 02/02/2025 11:22 AM CDT 4 mg propofoL (DIPRIVAN) injection IV, INTRA-PROCEDURE PRN, Starting on Sun02/02/25 at 1110, Until Sun02/02/25 at 1151, Anesthesia Intra-op Given 02/02/2025 11:10 AM CDT 120 mg rocuronium injection IV, INTRA-PROCEDURE PRN, Starting on Sun02/02/25 at 1110, Until Sun02/02/25 at 1151, Routine, Anesthesia Intra-op Given 02/02/2025 11:10 AM CDT 50 mg sugammadex (BRIDION) 100 mg/mL injection IV, INTRA-PROCEDURE PRN, Starting on Sun02/02/25 at 1145, Until Sun02/02/25 at 1151, Routine, Anesthesia Intra-op Given 02/02/2025 11:45 AM CDT 200 mg documented in this encounter Care Teams Pharmacy Intern Relationship Specialty Start Date End Date Yossi Apple MD [address] [place] [phone] PCP - General Family Practice 05/06/24 documented as of this encounter
--- OUTSIDE RECORDS SUMMARY | 2025-02-07 16:54 | XMS_ITS | Encounter Summary ---
Author Organization [facility] Address [address] [place] [address] Care Team Providers Care Biomedical Analytical Scientist Name Role Phone Yossi Apple MD Primary Care Provider [phone] Encounter Details Date Type Department Care Team (Late st Contact Info) Description 02/02/[address] [facility] Gen Spec Surg [address] [facility] 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
--- OUTSIDE RECORDS SUMMARY | 2025-02-07 16:54 | XMS_ITS | Encounter Summary ---
Author Organization [facility] Address [address] [place] [address] Care Team Providers Care Assistant Store Manager Operations Name Role Phone Yossi Apple MD Primary Care Provider [phone] Reason for Visit * Reason Onset Date Comments Nurse Navigation 01/29/2025 Encounter Details Date Type Department Care Team (Late st Contact Info) Description 01/29/2025 Telephone [facility] Surgical [address] 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
--- OUTSIDE RECORDS SUMMARY | 2025-02-07 16:54 | XMS_ITS | Clinical Summary ---
Author Organization [facility] Address [address] [facility] Attn: Epic Prelude ADT NICOLETTE JEFFERSON [address] Care Team Providers Care Senior Electrical Engineer Name Role Phone Yossi Apple MD Primary Care Provider [phone] Allergies Active Allergy Reactions Criticality Noted Date Comments Aller Xt-Tree Pollen,White Timothy Itching Low 2024 Allerg Ex,Grass Pollen-Bermuda Itching Low 2024 Alpha-Gal (Xuobveaqk-Eogar-1,3-Galacto se) Hives,Swelling High 01/21/2025 Carrot Hives High 2024 Cat Dander Unknown 2024 Chlorhexidine Itching Low 02/02/2025 Cockroach Unknown 2024 Dog Dander Anaphylaxis High 2024 Egg White Itching Low 2024 House Dust Mite Itching Low 2024 Mold Itching Low 2024 Morphine Itching Low 2024 Nitrofurantoin Monohyd/M-Cryst Itching,Other (See Comments) Medium 06/30/2024 Medications EPINEPHrine (EPIPEN) 0.3 mg/0.3 mL Auto-Injector Inject 0.3 mg by subcutaneous injection see administration instructions. Active fluticasone propionate (FLONASE) 50 mcg/spray Cisco, Suspension nasal inhaler Administer 1 Cisco in each nostril 2 times daily. 024 Active SODIUM CHLORIDE ORAL Take by mouth. Activ e MAGNESIUM OXIDE ORAL Take by mouth. Activ e OTHER Skinny Bird- HUM Act joe ketotifen fumarate (EYE ITCH RELIEF OP) by Ophthalmic route. Active OTHER Take by mouth daily. Turmeric Curcumin 2250mg of Organic Turmeric Curcumin 500mg of Curcuminoids Take 3 capsules daily with dinner Active MILK THISTLE ORAL Take 1,000 mg by mouth daily with breakfast. Active Dietary Supplement Capsule Take by mouth daily after lunch. Vegan K2+D3 Active OTHER Take 2,000 mg by mouth daily after lunch. Ascencion+D-Chiro Inositol Active vit E/E mix/tocotrienol/ hb 122 (ADVANCED HIGH GAMMA E ORAL) Take by mouth daily with breakfast. Gamma E Take two capsles of a morning with food Active medical marijuana, for documentation purposes, Take 10 Tablets by mouth. Taking 3 different ones, Boost, Go & Sleep Active albuterol sulfate HFA 90 mcg/actuation aerosol inhaler Take 2 Puffs by inhalation every 6 hours as needed for Shortness of Breath or Wheezing. 8.5 Gram 1 025 Active OTHERIndications :Hemorrhoids, unspecified hemorrhoid type Sig: Apply pea sized amount (1 pump) to the rectal area 4 times daily 100 Gram 025 Active oxyCODONE-acetam inophen (Percocet) 5-325 mg tabletIndication s:Hemorrhoids, unspecified hemorrhoid type Take 1 Tablet by mouth every 4 hours as needed for Pain, Moderate. Max Daily Amount: 6 Tablets 30 Tablet Active fluconazole (DIFLUCAN) 150 mg tablet Take 1 Tablet (150 mg) by mouth daily. 1 Tablet 1 025 2024 Discontinued ciprofloxacin HCl (Cipro) 500 mg tablet Take 1 Tablet (500 mg) by mouth 2 times daily for 3 days. 6 Tablet 025 2024 Discontinued sulfamethoxazole -trimethoprim (BACTRIM DS) 800-160 mg tablet Take 1 Tablet by mouth 2 times daily for 7 days. 14 Tablet 025 2024 Active Problems No known active problems Encounters Date Type Department Care Team Description 02/04/2025 External Device Data STL ABSTRACTION Provider, Abstract 02/02/2025 11:04 AM CDT Anesthesia Event [facility] Operating Room [address] [place], [place] [address] [phone] Deng Zavala MD Saeler, Carmen Ruth, KIARRA 02/02/2025 10:40 AM CDT - 02/02/2025 11:53 AM CDT Surgery [facility] Operating Room [address] [place] [phone] Óscar Lorenzo MD HEMORRHOIDECTOMY 02/02/2025 9:19 AM CDT - 02/02/2025 1:30 PM CDT Hospital Encounter [facility] 3J Pre-Op [address] [place] [phone] Óscar Lorenzo MD Hemorrhoids, unspecified hemorrhoid type Discharge Disposition: Home or Self Care 02/02/2025 Orders Only [facility] Gen Spec Surg [place] [address] [place] [phone] Óscar Lorenzo MD Hemorrhoids, unspecified hemorrhoid type (Primary Dx) 01/30/2025 Results Follow-Up [address] [phone] Carina Dodson FNP POC URINALYSIS DIPSTICK AUTOMATED, URINE CULTURE 01/29/2025 Telephone [facility] 3A Surgical [address] [place] [phone] Óscar Lorenzo MD Nurse Navigation 01/28/2025 10:00 AM CDT Clinical Support [address] [phone] Urinary tract pain (Primary Dx); Acute cystitis with hematuria; Environmental allergies 01/28/2025 Orders Only [address] [phone] Carina Dodson FNP Acute cystitis with hematuria (Primary Dx) 01/22/2025 Orders Only [facility] Gen Spec Surg [place] [address] [place] [phone] Óscar Lorenzo MD 01/21/2025 9:30 AM CDT Office Visit [facility] Gen Spec [facility]urg [place] [facility] [address] [phone] Diya Díaz NP Hemorrhoids, unspecified hemorrhoid type (Primary Dx) 01/13/2025 11:00 AM CDT Clinical Support [address] [address] Environmental allergies (Primary Dx) 01/13/2025 External Device Data STL ABSTRACTION Provider, Abstract 01/13/2025 Orders Only [address] [address] Carina Dodson FNP 01/07/2025 11:30 AM CDT Clinical Support [address] [address] Environmental allergies (Primary Dx) 01/06/2025 External Device Data STL ABSTRACTION Provider, Abstract 12/30/2024 10:30 AM CDT Clinical Support [address] [address] Environmental allergies (Primary Dx) 12/29/2024 Results Follow-Up [address] [address] Carina Dodson FNP VAGINOSIS/VAGINITIS PANEL PLUS, HIV DETECTION W/REFLX CONFIRMATION, HSV TYPE 1 AND 2 IGG ANTIBODY, SYPHILIS SEROLOGY W/REFLEX 12/29/2024 Orders Only [address] [phone] Carina Dodson FNP 12/26/2024 8:40 AM CDT Office Visit [address] [phone] Carina Dodson FNP Environmental allergies (Primary Dx); Right acute otitis media; External hemorrhoids; Muscle spasm; Cyst of cervix; Screen for STD (sexually transmitted disease); Pain of both breasts 12/17/2024 Orders Only [address] [phone] Provider, Abstract 12/16/2024 11:00 AM CDT Clinical Support [address] [address] Environmental allergies (Primary Dx) 12/16/2024 External Device Data STL ABSTRACTION Provider, Abstract 12/12/2024 10:00 AM CDT Clinical Support [address] [address] Environmental allergies (Primary Dx) 12/12/[address] [address] Carina Dodson FNP Lab Results 12/10/2024 External Device Data STL ABSTRACTION Provider, Abstract 12/10/2024 External Device Data STL ABSTRACTION Provider, Abstract 12/05/2024 Results Follow-Up [facility] Rheumatology- [place] [address] [place] [phone] Jasmyne Chairez COMPLEMENT C3/C4 PANEL, C-REACTIVE PROTEIN, THYROGLOBULIN ANTIBODY 12/02/2024 10:30 AM CDT Clinical Support [address] [address] Environmental allergies (Primary Dx) 12/01/2024 11:15 AM CDT Ancillary Procedure [facility] Imaging Services-Arjun [place] [address] [place] [phone] Faviola Souza MD SENA positive 12/01/2024 11:00 AM CDT Ancillary Procedure [facility] Imaging Services-[place] [address] [place] [address] Faviola Souza MD SENA positive 12/01/2024 10:20 AM CDT Office Visit [facility] Rheumatology- Arjun [place] [address] [place] [phone] Faviola Souza MD SENA positive (Primary Dx) 11/25/2024 10:15 AM CDT Clinical Support [facility] [address] [address] Environmental allergies (Primary Dx) 11/18/2024 11:30 AM CDT Clinical Support [facility] [address] [address] Environmental allergies (Primary Dx) from Last 3 Months Family History Medical History Relation Name Comments Cancer - Other Father Kamran Saba Liver cancer Cancer - Other Mother Gail Saba Skin cancer Breast Cancer Neg Hx Melanoma Neg Hx Ovarian Cancer Neg Hx Pancreatic Cancer Neg Hx Uterine or Endometrial Cance r, Not Including Cervical Neg Hx Relation Name Status Comments Father Kamran Saba Alive Mother Gail Saba Alive Social History Tobacco Use Types Packs/Day Years Used Date Smoking Tobacco: Never Smokeless Tobacco: Never Tobacco Cessation:Counseling Given: No Alcohol Use Standard Drinks/Week Comments Never 0 (1 standard drink = 0.6 oz pur e alcohol) Comments No Sex and Gender Information Value Date Recorded Sex Assigned at Not on file 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 Gender Identity Not on file Sexual Orientation Not on file Last Filed Vital Signs Vital Sign Reading [...] Mass Index 23.39 02/02/2025 9:41 AM CDT Plan of Treatment Health Maintenance Due Date Last Done Comments HPV VACCINES (1 - 3-dose series) 2004 DTAP/TDAP/TD VACCINES (1 - Tdap) 2008 HEPATITIS B VACCINES (1 of 3 - 19+ 3-dose series) 04/23 INFLUENZA VACCINE (#1) 2025 2024 PAP SMEAR 10/29/2027 10/28/2024 CERVICAL CANCER SCREENING 10/28/2029 HPV/Cotest (21-29) 10/28/2029 10/28/2024 HPV/Cotest (30-65) 10/28/2029 10/28/2024 Procedures Procedure Name Priority Date/Time Associated Diagnosis Comments TELEMETRY REPORT 02/04/2025 10:2 2 AM CDT PATHOLOGY Pathology 02/02/2025 11:28 AM CDT Hemorrhoids, unspecified hemorrhoid type [place] ANES INSERT ENDOTRACHEAL AIRWAY Routine 02/02/2025 11:11 AM CDT [place] HEMORRHOIDECTOMY INT & XTRNL 2/> COLUMN/ELLA 02/02/2025 10:40 AM CDT Hemorrhoids, unspecified hemorrhoid type [place] HEMORRHOIDECTOMY XTRNL 2/> COLUMN/GROUP 02/02/2025 10:40 AM CDT Hemorrhoids, unspecified hemorrhoid type EKG 12-LEAD Routine 02/02/2025 10:31 AM CDT CBC WITHOUT DIFFERENTIAL Routine 02/02/2025 10:28 AM CDT URINE CULTURE Routine 01/28/2025 10:36 AM CDT Acute cystitis with hematuria POC URINALYSIS DIPSTICK AUTOMATED Routine 01/28/2025 10:34 AM CDT Urinary tract pain SYPHILIS SEROLOGY W/REFLEX Routine 12/26/2024 9:24 AM CDT Screen for STD (sexually transmitted disease) HSV TYPE 1 AND 2 IGG ANTIBODY Routine 12/26/2024 9:24 AM CDT Screen for STD (sexually transmitted disease) HIV DETECTION W/REFLX CONFIRMATION Routine 12/26/2024 9:24 AM CDT Screen for STD (sexually transmitted disease) VAGINOSIS/VAGINITIS PANEL PLUS Routine 12/26/2024 9:24 AM CDT Screen for STD (sexually transmitted disease) THYROGLOBULIN ANTIBODY Routine 5 11:10 AM CDT SENA positive C-REACTIVE PROTEIN Routine 12/01/2024 11 :10 AM CDT SENA positive COMPLEMENT C3/C4 PANEL Routine 5 11:10 AM CDT SENA positive XR KNEE 3 VW BILAT Routine 12/01/2024 11 :04 AM CDT SENA positive XR HAND 3+ VW BILAT Routine 12/01/2024 1 1:01 AM CDT SENA positive CERV/VAG CYTO AGE BASED SCREEN PAP Routine 10/28/2024 11:32 AM CDT Well woman exam with routine gynecological exam Cervical cancer screening from Last 3 Months or Most Recently Relevant to Health Maintenance Results * TELEMETRY REPORT (02/04/2025 10:22 AM CDT) us Provider Scanning ECG ORDERABLES Final Result * PATHOLOGY (02/02/2025 11:28 AM CDT) CASE REPORT Surgical Pathology Report Case: [id number] Authorizing Provider: Óscar Lorenzo MD Collected: 02/02/2025 11:28 AM Ordering Location: [facility] Received: 02/02/2025 12:48 PM Operating Room Pathologist: Chang Radford MD Specimen: Hemorrhoids 5 4:15 PM CDT [facility] FINAL DIAGNOSIS A. Hemorrhoids, excision - Hemorrhoids - Negative for dysplasia and malignancy Chang Radford MD [id number] 5 4:15 PM CDT [facility] at 1615 CDT GROSS DESCRIPTION A. Received in a container of formalin labeled Richard -hemorrhoids are 3 fragments of pale prado skin with underlying blood clot, measuring 3.7 x 2.6 x 1.3 cm. The specimen is serially sectioned to reveal dilated vascular structures. There are no discrete underlying lesion. Leaf Tinner sections are submitted in A1. Zoe Noe 5 4:15 PM CDT [facility] OPERATIVE PROCEDURE 1: HEMORRHOIDECTOMY 5 4:15 PM CDT [facility] CLINICAL INFORMATION Hemorrhoids, unspecified hemorrhoid type 5 4:15 PM CDT [facility] COMMENT The DewMobile voice-activated dictation system may have been used [...] determined by the Diagnostic Immunohistochemistry [facility] of [facility] in compliance with CLIA'88 regulations. Some of these tests rely on the use of analyte specific reagents and are subject to specific labeling requirements by the FDA. All controls show appropriate reactivity. This testing was developed by the Diagnostic Immunohist[facility] of [facility]. It has not been cleared or approved by the FDA. The FDA has determined that such clearance or approval is not necessary. 5 4:15 PM CDT [facility] Tissue (Hemorrhoids) Collection / Unknown 02/02/2025 11:28 AM CDT 02/02/2025 12:48 PM CDT us Óscar Lorenzo MD PATHOLOGY/CYTOLOGY ORDERABLES F inal Result [facility] CLIA # [id number] [address] [place] [address] * [place] ANES INSERT ENDOTRACHEAL AIRWAY (02/02/2025 11:11 AM [...] MD PROCEDURE/MINOR SURGICAL ORDER OZZY Final Result * EKG 12-LEAD (02/02/2025 10:31 AM CDT) 02/02/2025 10:3 1 AM CDT Narrative INTERFACE SYSTEM - 02/02/2025 7:19 PM CDT [address] [address] Test Date: 2025-02-02 Pat Name: SUSANA ZAPATA Department: 12 Room: PREOP PHAS PREOP PHAS 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1990 Requested By: Order Number: [id number] Reading MD: Sylwia Zepeda Measurements Intervals [place] Rate: 60 P: 57 [place]: 144 QRS: 53 QRSD: 82 T: 37 QT: 422 QTc: 422 Interpretive Statements Sinus rhythm with marked sinus arrhythmia Otherwise normal ECG Electronically Signed On 02-02-2025 19:19:16 CDT by Sylwia Zepeda Procedure Note Sylwia Zepeda MD - 02/02/2025 [address] [place] [address] Test Date: 2025-02-02 Pat Name: SUSANA ZAPATA Department: 12 Room: PREOP PHAS PREOP PHAS Gender: Female Utility Maintenance Worker: 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 : 1990 Requested By: Order Number: [id number] Reading MD: Sylwia Zepeda Measurements Intervals [place] Rate: 60 P: 57 [place]: 144 QRS: 53 QRSD: 82 T: 37 QT: 422 QTc: 422 Interpretive Statements Sinus rhythm with marked sinus arrhythmia Otherwise normal ECG Electronically Signed On 02-02-2025 19:19:16 CDT by Sylwia Zepeda us Óscar Lorenzo MD ECG ORDERABLES Final Result Performing Organization Address City/State/[facility] Co de Phone Number INTERFACE SYSTEM Refer to clinic/hospital department * (ABNORMAL) CBC WITHOUT DIFFERENTIAL (02/02/2025 10:28 AM CDT) WBC 4.6 4.5 - 11.0 K/uL 02/02/2025 10:46 AM CDT [facility] RBC 3.86(L) 4.20 - 5.40 M/uL 02/02/2025 10:46 AM CDT [facility] HEMOGLOBIN 11.5(L) 12.0 - 16.0 g/dL 02/02/2025 10:46 AM CDT [facility] HEMATOCRIT 35.5(L) 36.0 - 46.0 % 02/02/2025 10:46 AM CDT [facility] MCV 92.0 84.0 - 103.0 fL 02/02/2025 10:46 AM CDT [facility] MCH 29.8 27.0 - 34.0 pg 02/02/2025 10:46 AM CDT [facility] MCHC 32.4 30.0 - 35.0 g/dL 02/02/2025 10:46 AM CDT [facility] PLATELETS 211 140 - 440 K/uL 02/02/2025 10:46 AM CDT [facility] MPV 10.3 8.9 - 12.8 fL 02/02/2025 10:46 AM CDT [facility] RDW 13.0 11.0 - 14.5 % 02/02/2025 10:46 AM CDT [facility] RDW-STDEV 43.5 37.0 - 54.0 fL 02/02/2025 10:46 AM CDT [facility] Blood Venipuncture / Unknown 02/02/2025 10:28 AM CDT 02/02/2025 10:39 AM CDT Óscar Lorenzo MD HEMATOLOGY ORDERABLES Final Res ult [facility] CLIA # [id number] [address] [place] [address] * (ABNORMAL) URINE CULTURE (01/28/2025 10:36 AM CDT) URINE CULTURE SEE NOTE(A) [facility] Comment: CULTURE, URINE, ROUTINE Micro Number: [id number] Test Status: Final Specimen Source: Urine, clean catch Specimen Quality: Adequate Result: 10,000-49,000 CFU/mL of Staphylococcus saprophyticus The Clinical Laboratory Standards [place] (CLSI) does not advise routine susceptibility testing of urine isolates of S. saprophyticus because infections respond to urinary concentrations of agents commonly used to treat acute, uncomplicated UTI such as nitrofurantoin, trimethoprim-sulfamethoxazole or a fluoroquinolone. Test Performed at: [facility] [address] [place] [address] Ant Servin MD Urine URINE SPECIMEN OBTAINED BY CLEAN CATCH PROCEDURE / Unknown 01/28/2025 10:36 AM CDT 01/29/2025 3:33 AM CDT Carina CASTELLANOS MICROBIOLOGY - GENERAL OR DERABLES Final Result [facility] [phone] [facility] [address] [place] [address] * (ABNORMAL) POC URINALYSIS DIPSTICK AUTOMATED (01/28/2025 10:34 AM CDT) COLOR UA POC Yellow Pale to Dark Yellow [facility] CLARITY UA POC Cloudy(A) Clear, Other [facility] GLUCOSE UA POC Negative Negative, Normal [facility] BILIRUBIN UA POC Negative Negative [facility] KETONES UA POC Negative Negative [facility] SPECIFIC GRAVITY UA POC 1.020 1.000 - 1.030 [facility] BLOOD UA POC 2+(A) Negative [facility] PH UA POC 7.0 5.0 - 8.0 [facility] CLIN IC [facility] PROTEIN UA POC 2+(A) Negative [facility] UROBILINOGEN UA POC 0.2 <2.0 mg/dL [facility] NITRITE UA POC Negative Negative [facility] LEUKOCYTE ESTERASE UA POC 3+(A) Negative [facility] KIT LOT NUMBER POC [phone] [facility] KIT EXP DATE POC 11-19-2025 [facility] Urine 01/28/2025 10:3 4 AM CDT Carina Dodson ONSHORE DIVER POINT OF CARE TESTING Fin al Result [facility] CLIA# [id number] [address] [place] [address] * (ABNORMAL) VAGINOSIS/VAGINITIS PANEL PLUS (12/26/2024 9:24 AM CDT) BACTERIAL VAGINOSIS NEGATIVE NEGATIVE [facility] CHARLEY SPECIES DETECTED(A) NOT DETECTED [facility] CHARLEY GLABRATA NOT DETECTED NOT DETECTED [facility] Comment: Charley species C. albicans, C. tropicalis, C. parapsilosis, and/or C. dubliniensis can be detected, but not differentiated, in the Charley spp. result. TRICHOMONAS VAGINALIS (TV), TMA NOT DETECTED NOT DETECTED [facility] CHLAMYDIA TRACHOMATIS RNA, TMA, UROGENITAL NOT DETECTED NOT DETECTED [facility] NEISSERIA GONORRHOEAE RNA, TMA, UROGENITAL NOT DETECTED NOT DETECTED [facility] Comment: For additional information, please refer to https://education.AppLayer/faq/KED694 (This link is being provided for information/ educational purposes only.) Test Performed at: [facility] [address] [place] [address] Ant Servin MD Genital SPECIMEN FROM VAGINA / Unknown 12/26/2024 9:24 AM CDT 12/27/2024 3:07 AM CDT Carina BARILLASP MICROBIOLOGY - GENERAL OR DERABLES Final Result [facility] [phone] [facility] [id number] [place] [address] * SYPHILIS SEROLOGY W/REFLEX (12/26/2024 9:24 AM CDT) T PALLIDUM ANTIBODIES NEGATIVE NEGATIVE [facility] Comment: No antibodies to T. pallidum (the agent causing syphilis) were detected in the specimen. This result, however, does not exclude very recent T. pallidum infection; testing of a second specimen, collected 2-4 weeks after this specimen, is recommended if the index of suspicion for recent infection is high. Test Performed at: [facility] [address] [place] [address] Elijah Vee Blood 12/26/2024 9:24 AM CDT 12/26/2024 9:25 AM CDT Carina BARILLASP CHEMISTRY ORDERABLES Nithya l Result [facility] [phone] [facility] [address] [place] [address] * HIV DETECTION W/REFLX CONFIRMATION (12/26/2024 9:24 AM CDT) Pathologist [facility] HIV-1/2 AG AND AB SCREEN NON-REACT JOE NON-REACT JOE [facility] Comment: HIV-1 antigen and HIV-1/HIV-2 antibodies were not detected. There is no laboratory evidence of HIV infection. PLEASE NOTE: This information has been disclosed to you from records whose confidentiality may be protected by state law. If your state requires such protection, then the state law prohibits you from making any further disclosure of the information without the specific written consent of the person to whom it pertains, or as otherwise permitted by law. A general authorization for the release of medical or other information is NOT sufficient for this purpose. For additional information please refer to http://education.AppLayer/faq/UHE499 (This link is being provided for informational/ educational purposes only.) The performance of this assay has not been clinically validated in patients less than 2 years old. Test Performed at: [facility] [address] [place] [address] Ant Servin MD Blood 12/26/2024 9:24 AM CDT 12/26/2024 9:25 AM CDT Carina Dodson [facility] CHEMISTRY ORDERABLES Nithya l Result [facility] [phone] [address] * HSV TYPE 1 AND 2 IGG ANTIBODY (12/26/2024 9:24 AM CDT) HSV1 IGG <0.90 index [facility] HSV2 IGG <0.90 index [facility] Comment: Index Interpretation ----- <0.90 Negative 0.90-1.09 Equivocal >1.09 Positive This assay utilizes recombinant type-specific antigens to differentiate HSV-1 from HSV-2 infections. A positive result cannot distinguish between recent and past infection. If recent HSV infection is suspected but the results are negative or equivocal, the assay should be repeated in 4-6 weeks. The performance characteristics of the assay have not been established for pediatric populations, immunocompromised patients, or screening. For additional information, please refer to http://education.Translimit/faq/ZLC204 (This link is being provided for informational/ educational purposes only.) Test Performed at: [facility] [address] [place] [address] Ant Servin MD Blood 12/26/2024 9:24 AM CDT 12/26/2024 9:25 AM CDT Carina CASTELLANOS CHEMISTRY ORDERABLES Nithya l Result Performing Organization Address City/[facility]/ZIP Co de Phone Number [facility] [phone] [facility] [address] [address] * COMPLEMENT C3/C4 PANEL (12/01/2024 11:10 AM CDT) [facility] COMPLEMENT C3 105 83 - 193 mg/dL [facility] COMPLEMENT C4 18 15 - 57 mg/dL [facility] Comment: FASTING:NO FASTING: NO Test Performed at: [facility] [address] [place] [address] Ant Servin MD Blood 12/01/2024 11:1 0 AM CDT 12/01/2024 11:13 AM CDT Faviola Souza MD CHEMISTRY ORDERABLES Final R esult [facility] [phone] [facility] [address] [place] [address] * THYROGLOBULIN ANTIBODY (12/01/2024 11:10 AM CDT) THYROGLOBULIN AB <1 < or = 1 IU/mL [facility] Comment: FASTING:NO FASTING: NO Test Performed at: [address] [address] Elijah Vee Blood 12/01/2024 11:1 0 AM CDT 12/01/2024 11:13 AM CDT Faviola Souza MD CHEMISTRY ORDERABLES Final R esult Performing Organization Address City/[facility]/ZIP Co de Phone Number [facility] [phone] [address] * C-REACTIVE PROTEIN (12/01/2024 11:10 AM CDT) CRP <3.0 <8.0 mg/L [facility] Comment: FASTING:NO FASTING: NO Test Performed at: [facility] [address] [place] [address] Ant Servin MD Blood 12/01/2024 11:1 0 AM CDT 12/01/2024 11:13 AM CDT us Faviola Souza MD CHEMISTRY ORDERABLES Final R esult [facility] [phone] [facility] [id number] [place] [address] * XR KNEE 3 VW BILAT (12/01/2024 11:04 AM CDT) Anatomical Region Laterality Modality Lower Extremity Computed Radiogr aphy 12/01/2024 11:0 4 AM CDT Impressions 12/01/2024 9:56 PM CDT IMPRESSION: Please see below. Exam: XR KNEE 3 VW BILAT Date/Time of Exam: 12/01/2024 11:04 AM Reason For Exam: See Diagnosis. Diagnosis: SENA positive. Findings: There are no comparisons. An AP standing view of both knees was obtained. No soft tissue swelling or joint effusion is noted on either side. There is no evidence for fracture or dislocation on either side. No periosteal reaction is noted. No lytic, blastic or destructive lesion is noted. There is mild osteophyte formation along the bilateral tibial spines. No other arthritic change is appreciated. No radiopaque foreign body is noted. IMPRESSION: Mild osteophyte formation along the bilateral tibial spines. Otherwise unremarkable exam. Narrative Procedure Note Judith Garg MD - 12/01/2024 IMPRESSION: Please see below. Exam: XR KNEE 3 VW BILAT Date/Time of Exam: 12/01/2024 11:04 AM Reason For Exam: See Diagnosis. Diagnosis: SENA positive. Findings: There are no comparisons. An AP standing view of both knees was obtained. No soft tissue swelling or joint effusion is noted on either side. There is no evidence for fracture or dislocation on either side. No periosteal reaction is noted. No lytic, blastic or destructive lesion is noted. There is mild osteophyte formation along the bilateral tibial spines. No other arthritic change is appreciated. No radiopaque foreign body is noted. IMPRESSION: Mild osteophyte formation along the bilateral tibial spines. Otherwise unremarkable exam. Faviola Souza MD DIAGNOSTIC IMAGING ORDERABLE S Final Result * XR HAND 3+ VW BILAT (12/01/2024 11:01 AM CDT) Anatomical Region Laterality Modality Wrist / Hand Computed Radiogr aphy 12/01/2024 11:0 1 AM CDT Impressions 12/01/2024 9:46 PM CDT IMPRESSION: Please see below. Exam: XR HAND 3+ VW BILAT Date/Time of Exam: 12/01/2024 11:01 AM Reason For Exam: See Diagnosis. Diagnosis: SENA positive. Findings: There are no comparisons. No soft tissue swelling is appreciated in either hand. Mineralization is normal bilaterally. There is no evidence for fracture or dislocation on either side. No periosteal reaction is noted. No lytic, blastic or destructive lesion is noted. No erosions are appreciated. No significant arthritic change is appreciated on either side. No radiopaque foreign body is noted. IMPRESSION: No significant radiographic abnormality of either hand is noted. Narrative Procedure Note Judith Garg MD - 12/01/2024 IMPRESSION: Please see below. Exam: XR HAND 3+ VW BILAT Date/Time of Exam: 12/01/2024 11:01 AM Reason For Exam: See Diagnosis. Diagnosis: SENA positive. Findings: There are no comparisons. No soft tissue swelling is appreciated in either hand. Mineralization is normal bilaterally. There is no evidence for fracture or dislocation on either side. No periosteal reaction is noted. No lytic, blastic or destructive lesion is noted. No erosions are appreciated. No significant arthritic change is appreciated on either side. No radiopaque foreign body is noted. IMPRESSION: No significant radiographic abnormality of either hand is noted. Faviola Souza MD DIAGNOSTIC IMAGING ORDERABLE S Final Result * CERV/VAG CYTO AGE BASED SCREEN PAP (10/28/2024 11:32 AM CDT) COMMENT (PAP): [facility] Comment: This order for age-based cervical cancer and STI screening follows ACOG guidelines(PB 168, 140, [id number]). See individual assays for performing site location. CLINICAL INFORMATION [facility] Comment:None given LAST MENSTRUAL PERIOD [facility] Comment:10/07/2024 PREV PAP: [facility] Comment:NONE GIVEN PREV BX: [facility] Comment:NONE GIVEN SOURCE [facility] Comment:Endocervix ADEQUACY: [facility] Comment: Satisfactory for evaluation. Endocervical/transformation zone component present. Age and/or menstrual status not provided PAP INTERP [facility] Comment: Cytology Results: Negative for intraepithelial lesion or malignancy. COMMENT (PAP TEST) [facility] Comment: This Pap test has been evaluated with computer assisted technology. CROWN IRONER: [facility] Comment: TIMOTHY, CT(ASCP) CT screening location: [place] [address] [place] [address] EXPLANATORY NOTE [facility] Comment: EXPLANATORY NOTE: The Pap is a screening test for cervical cancer. It is not a diagnostic test and is subject to false negative and false positive results. It is most reliable when a satisfactory sample, regularly obtained, is submitted with relevant clinical findings and history, and when the Pap result is evaluated along with historic and current clinical information. HPV E6/E7 Not Detected Not Detected [facility] Comment: Methodology: Computer Salesperson Retail-Mediated Amplification This assay detects E6/E7 viral messenger RNA (mRNA) from 14 high-risk HPV types (16,18,31,33,35,39,45,51,52,56,58,59,66,68). Cervical sources are required for HPV testing. If a vaginal source from a patient who has had a total hysterectomy with removal of cervix was submitted, please contact the testing laboratory for alternative testing options. For additional information, please refer to http://education.AppLayer/faq/HRT196o9 (This link if provided for information/ educational purposes only.) Test Performed at: [address] [address] Elijah ROSADO Genital SWAB OF ENDOCERVIX / Unknown 10/28/2024 11:32 AM CDT 10/29/2024 4:42 PM CDT Yossi Apple MD PATHOLOGY/CYTOLOGY ORDERABLES nal Result [facility] [phone] [phone] from Last 3 Months or Most Recently Relevant to Health Maintenance [place] [address] [address] [address] Care Teams Senior Electrical Engineer Relationship Specialty Start Date End Date Yossi Apple MD [address] [place] [phone] PCP - General Family Practice 05/06/24
--- OUTSIDE RECORDS SUMMARY | 2025-02-07 16:54 | XMS_ITS | Encounter Summary ---
Author Organization [facility] Address [address] [place] [address] Care Team Providers Care Cigarette Packing Machine Operator Name Role Phone Yossi Apple MD Primary Care Provider [phone] Encounter Details Date Type Department Care Team (Late st Contact Info) Description 01/28/2025 Orders Only [facility] [place] [address] [phone] Carina Dodson, [facility] [address] [phone] Acute cystitis with hematuria (Primary Dx) Social History Tobacco Use Types Packs/Day Years Used Date Smoking Tobacco: Never Smokeless Tobacco: Never Alcohol Use Standard Drinks/Week Comments Never 0 (1 standard drink = 0.6 oz pur e alcohol) Comments No Sex and Gender Information Value Date Recorded Sex Assigned at Not on file Legal 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 saprophyticus because infections respond to urinary concentrations of agents commonly used to treat acute, uncomplicated UTI such as nitrofurantoin, trimethoprim-sulfamethoxazole or a fluoroquinolone. Test Performed at: [facility] [address] [place] [address] Ant Servin MD Urine URINE SPECIMEN OBTAINED BY CLEAN CATCH PROCEDURE / Unknown 01/28/2025 10:36 AM CDT 01/29/2025 3:33 AM CDT Carina Dodson CODING MACHINE OPERATOR MICROBIOLOGY - GENERAL OR DERABLES Final Result [facility] [phone] [facility] [address] [place] [address] documented in this encounter Visit Diagnoses Diagnosis Acute cystitis with hematuria- Primary Acute cystitis documented in this encounter Care Teams Cigarette Packing Machine Operator Relationship Specialty Start Date End Date Yossi Apple MD [address] [place] [phone] PCP - General Family Practice 05/06/24 documented as of this encounter
--- OUTSIDE RECORDS SUMMARY | 2025-02-07 16:54 | XMS_ITS | Data Portability ---
Author Organization NICOLETTE [facility] Kristie, Nora, [facility] Address [address] [place] [address] Assessment Encounter Date Assessment Date Assessment LastModified by Organization Details LastModified Time 08/16/2023 08/16/2023 Patient will come back in a year unless there are new symptoms. She has no current vaginal concerns. She takes a probiotic daily. Discussed with patient pap testing, she has not had an abnormal and HPV testing was negative with pap completed in 2020, she is no longer concerned about STDs and will hold off on testing at this time. Not available 08/27/2023 14:14:30 11/08/2023 11/08/2023 Patient reports she has had this place on her inner lip for about 4 weeks. It seems like it is getting bigger. She will contact her dentist as well to see if they can take care of it. Not available 11/08/2023 10:25:47 12/20/2023 12/20/2023 Her nurse friend was wondering if she had diabetes insipidus. Will check labs today to see. She is concerned about her hair growth and would like to lose 10 pounds. Not available 12/26/2023 15:06:05 Plan of Treatment Reminders Order Date Submit Date Provider Last Modified By Organization Details Last Modified Time Details Appointments None recorded. Lab urinalysis, dipstick 2023 024 CARLIE [facility] ([facility]), [address] [place], [address], 4 16:40:06 culture, urine 2023 024 [facility], [address] [place] [address], [address], [place], [address], 4 22:21:08 TSH, serum or plasma 2023 024 [facility] ([facility]), [address] [place], [address], 4 16:58:21 lh + FSH, serum [address] [facility], [address] [place] [address], [address], [place], [address], 4 22:24:50 estradiol, serum [address] [facility], [address] [place] [address], [address], [place], [address], 4 22:24:49 progesteron e, serum [address] [facility], [address] [place] [address], [address], [place], [address], 4 22:24:48 testosteron e, total, serum [address] [facility], [address] [place] [address], [address], [place], [address], 4 22:24:51 CMP, serum or plasma 2023 024 [facility], [address] [place] [address], [address], 4 17:10:38 CBC 2023 024 [facility], [address] [place] [address] [place], [address], 4 16:15:23 urinalysis, dipstick 2023 024 [email or web address] [facility] [address] [facility], [place], [address], 4 14:01:12 culture, urine 2023 024 [facility], [address] [place] [address], [facility] [address], [place], [address], 4 10:03:28 unlisted lab - sureswab(R) advanced vaginitis plus, tma 2023 024 [facility], [address] [place] [address], [address], [place], [address], 4 10:03:27 TSH, serum or plasma 2023 024 CARLIE Not available 5 05:01:12 Referral oral surgery/den tist referral 2023 024 [email or web address] 2 Not available 4 13:54:02 cardiologis t referral 2023 024 [email or web address], [address] [place] [address] , [facility], [place], [address], 4 14:48:14 otolaryngol ogist referral 2023 024 [email or web address] 2 Reddy Casey MD, [address] , [place], [address], 4 09:15:06 Procedures None recorded. Surgeries None recorded. Imaging None recorded. Medication Orders ciprofloxac in 500 mg tablet 2023 024 [facility] [address], [place], [address], 15:43:30 metronidazo le 500 mg tablet 2023 024 [email or web address] 9 [facility] 15, [address], [place], [address], 4 09:55:41 chlorhexidi ne gluconate 0.12 % mouthwash 2023 024 9 [facility] 15, [address], [place], [address], 09:56:00 Patient TargetsNo targets recorded. Patient Instructions Encounter Date Encounter Id Patient Instructions Last Modified By Organization Details Last Modified Time 08/16/2023 [id number] Call or return for questions or concerns. Not available 08/16/2023 13:05:45 11/08/2023 [id number] Call or return for questions or concerns. Not available 11/08/2023 10:25:23 12/20/2023 [id number] Call or return for questions or concerns. 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 Referring Physician: Jessica Bo [facility], Encounter Date: 12/20/2023 [employer] Log[employer] Analyst Referral for Po stural orthostatic tachycardia syndrome Referring Physician: Jessica Bo [facility], Encounter Date: 12/20/2023 Results Created Date Observation Date Name Description Value Unit Range Abnormal Flag Note LastModifiedBy Organization Detail LastModifiedTime 10/08/19 24 10/09/2023 SURES WAB(R ) ADVAN ROX VAGIN ITIS PLUS, TMA sureswab(R) adv bacterial vaginosis (bv), tma NEGATI VE negati ve normal Not Available [facility] [address], [address], 10/09/2023 13:24:13 10/08/19 24 10/09/2023 SURES WAB(R ) ADVAN ROX VAGIN ITIS PLUS, TMA delbert species NOT DETECT ED not detect ed normal Not Available [facility] [address], [address], 10/09/2023 13:24:13 10/08/19 24 10/09/2023 SURES WAB(R ) ADVAN ROX VAGIN ITIS PLUS, TMA delbert glabrata NOT DETECT ED not detect ed normal Kalli da speci es C. albic ans, C. tropi calis , C. parap ant is, and/o r C. dubli niens is can be detec carmen, but not diffe renti ated, in the Kalli da spp. resul t. Not Available [facility] [address], [address], 10/09/2023 13:24:13 10/08/19 24 10/09/2023 SURES WAB(R ) ADVAN ROX VAGIN ITIS PLUS, TMA trichomonas vaginalis (TV), tma NOT DETECT ED not detect ed normal Not Available [address], [address], 10/09/2023 13:24:13 10/08/19 24 10/09/2023 SURES WAB(R ) ADVAN ROX VAGIN ITIS PLUS, TMA chlamydia trachomatis RNA, tma, urogenital NOT DETECT ED not detect ed normal Not Available [facility] [address], [address], 10/09/2023 13:24:13 10/08/19 24 10/09/2023 SURES WAB(R ) ADVAN ROX VAGIN ITIS PLUS, TMA neisseria gonorrhoeae RNA, tma, urogenital NOT DETECT ED not detect ed normal For addit ional infor kajal monroy e refer to https ://ed ucati on.qu darrell [employer]. com/f aq/FA Q154 (This link is being provi ded for infor dalton segura/ tamara do purpo ses only. ) Not Available [facility] [address] [place] [address], [address], 10/09/2023 13:24:13 10/08/19 24 10/16/2023 CULTU RE, URINE , ROUTI NE culture, urine, routine SEE NOTE abnormal CULTU RE, URINE , ROUTI NE Micro Numbe r: [id number] Test Statu s: Final Speci men Sourc e: Urine , clean catch Speci men Quali ty: Adequ ate Resul t: 50,00 0-100 ,000 CFU/m L of Enter ococc us faeca lis 50,00 0-100 ,000 CFU/m L of Non-u ropat hogen ic Gram posit porter organ ism May repre sent colon izers from exter nal and inter nal genit sarath. No furth er testi ng (incl uding susce ptibi lity) will be perfo rmed. E.ida calis ----- ----- ----- - INT CECILIA AMPIC ILLIN S <2 NITRO FURAN TOIN S <32 VANCO MYCIN S 1 S=Melanie cepti ble I=Int ermed iate R=Res istan t * = Not Teste d NR = Not Repor carmen NN = See Thera py Comme nts Not Available [address], [address], 10/16/2023 10:38:02 10/08/19 24 10/08/2023 urina lysis , dipst ick Leukocytes Negati ve Not Available [facility] ([facility]) [address] [place], [address], 10/08/2023 13:52:53 10/08/19 24 10/08/2023 urina lysis , dipst ick Nitrite negati ve Not Available [facility] ([facility]) [address] [place], [address], 10/08/2023 13:52:53 10/08/19 24 10/08/2023 urina lysis , dipst ick Urobilinogen .2 Not Available [facility] ([facility]) [address] [place], [address], 10/08/2023 13:52:53 10/08/19 24 10/08/2023 urina lysis , dipst ick Protein Negati ve Not Available [facility] ([facility]) [address] [place], [address], 10/08/2023 13:52:53 10/08/19 24 10/08/2023 urina lysis , dipst ick pH 6.0 Not Available [facility] ([facility]) [address] [place], [address], 10/08/2023 13:52:53 10/08/19 24 10/08/2023 urina lysis , dipst ick Blood Negati ve Not Available [facility] ([facility]) [address] [place], [address], 10/08/2023 13:52:53 10/08/19 24 10/08/2023 urina lysis , dipst ick Specific Myrtle 1.030 Not Available [facility] ( [facility]) [address] [place], [address], 10/08/2023 13:52:53 10/08/19 24 10/08/2023 urina lysis , dipst ick Ketone Negati ve Not Available [facility] ([facility]) [address] [place], [address], 10/08/2023 13:52:53 10/08/19 24 10/08/2023 urina lysis , dipst ick Bilirubin Negati ve Not Available [facility] ([facility]) [address] [place], [address], 10/08/2023 13:52:53 10/08/19 24 10/08/2023 urina lysis , dipst ick Glucose Negati ve Not Available [facility] ([facility]) [address] [place], [address], 10/08/2023 13:52:53 10/08/19 24 10/08/2023 urina lysis , dipst ick Appearance Clear Not Available [facility] ([facility]) [address] [place], [address], 10/08/2023 13:52:53 10/08/19 24 10/08/2023 urina lysis , dipst ick Color Dark Yellow Not Available [facility] ([facility]) [address] [place], [address], 10/08/2023 13:52:53 12/20/19 24 12/20/2023 CBC WBC 4.8 x10 4.0-10 .5 Not Available [facility] [address] [facility] [address], [place], [address], 12/20/2023 16:15:22 12/20/19 24 12/20/2023 CBC RBC 4.53 x10 3.50-5 .50 Not Available [facility] [address] [facility] [address], [place], [address], 12/20/2023 16:15:22 12/20/19 24 12/20/2023 CBC HGB 13.8 g/dL 12.0-1 6.0 Not Available [facility] [address] [facility] [address], [place], [address], 12/20/2023 16:15:22 12/20/19 24 12/20/2023 CBC HCT 41.2 % 37.0-4 7.0 Not Available [facility] [address] [facility] [address], [place], [address], 12/20/2023 16:15:22 12/20/19 24 12/20/2023 CBC MCV 90.9 fL 80.0-9 9.9 Not Available [facility] [address] [facility], [place], [address], 12/20/2023 16:15:22 12/20/19 24 12/20/2023 CBC MCH 30.4 pg 27.0-3 2.0 Not Available [facility] [address] [facility], [place], [address], 12/20/2023 16:15:22 12/20/19 24 12/20/2023 CBC MCHC 33.4 g/dL 32.0-3 6.0 Not Available [facility] [address] [facility], [place], [address], 12/20/2023 16:15:22 12/20/19 24 12/20/2023 CBC RDW 13.9 % 11.5-1 4.5 Not Available [facility] [address] [facility], [place], [address], 12/20/2023 16:15:22 12/20/19 24 12/20/2023 CBC plt 244.6 x10 140.0- 451.0 Not Available [facility] [address] [facility], [place], [address], 12/20/2023 16:15:22 12/20/19 24 12/20/2023 CBC lymphocytes % 29.3 % 20.0-5 0.0 Not Available [facility] [address] [facility], [place], [address], 12/20/2023 16:15:22 12/20/19 24 12/20/2023 CBC granulcytes % 61.1 % 30.0-7 0.0 Not Available [facility] [address] [address], [place], [address], 12/20/2023 16:15:22 12/20/19 24 12/20/2023 CBC monocytes % 8.1 % 2.0-10 .0 Not Available [facility] [address] [address], [place], [address], 12/20/2023 16:15:22 12/20/19 24 12/20/2023 CBC granulcytes# 2.9 x10 Not Netta ilable [facility] [address] [address], [place], [address], 12/20/2023 16:15:22 12/20/19 24 12/20/2023 CBC lymphocytes # 1.4 x10 Not Available [facility] [address] [address], [place], [address], 12/20/2023 16:15:22 12/20/19 24 12/20/2023 CBC monocytes # 0.4 x10 Not Avai lable [facility] [address] [address], [place], [address], 12/20/2023 16:15:22 12/20/19 24 12/20/2023 CMP (FEMA LE) glucose 87.0 mg/dL 60.0-9 9.0 Not Available [facility] [address] [address], [place], [address], 12/20/2023 17:10:38 12/20/19 24 12/20/2023 CMP (FEMA LE) BUN (blood urea nitrogen) 11.0 mg/dL 10.0-2 6.0 Not Available [facility] [address] [address], [place], [address], 12/20/2023 17:10:38 12/20/19 24 12/20/2023 CMP (FEMA LE) creatinine (serum) 0.7 mg/dL 0.4-1. 5 Not Available [facility] [address] [facility] [address], [place], [address], 12/20/2023 17:10:38 12/20/19 24 12/20/2023 CMP (FEMA LE) BUN/creatini ne ratio 15.28 ratio Not Available [facility] [address] [address], [place], [address], 12/20/2023 17:10:38 12/20/19 24 12/20/2023 CMP (FEMA LE) eGFR calculated 98.6 Not Available [facility] [address] [address], [place], [address], 12/20/2023 17:10:38 12/20/19 24 12/20/2023 CMP (FEMA LE) total protein 7.7 g/dL 6.0-8. 5 Not Available [facility] [address] [address], [place], [address], 12/20/2023 17:10:38 12/20/19 24 12/20/2023 CMP (FEMA LE) total bilirubin 0.6 mg/dL 0.2-1. 3 Not Available [facility] [address] [address], [place], [address], 12/20/2023 17:10:38 12/20/19 24 12/20/2023 CMP (FEMA LE) albumin 4.5 g/dL 3.5-5. 5 Not Available [facility] [address] [address], [place], [address], 12/20/2023 17:10:38 12/20/19 24 12/20/2023 CMP (FEMA LE) globulin 3.2 calc Not Available [facility] [address] [facility] [address], [place], [address], 12/20/2023 17:10:38 12/20/19 24 12/20/2023 CMP (FEMA LE) AST (SGOT) 27.0 U/L 0.0-46 .0 Not Available [facility] [address] [facility] [address], [place], [address], 12/20/2023 17:10:38 12/20/19 24 12/20/2023 CMP (FEMA LE) altv (SGPT) 15.0 U/L 13.0-6 9.0 normal Not Available [facility] [address] [facility] [address], [place], [address], 12/20/2023 17:10:38 12/20/19 24 12/20/2023 CMP (FEMA LE) A/G ratio 1.4 ratio Not Available [facility] [address] [facility] [address], [place], [address], 12/20/2023 17:10:38 12/20/19 24 12/20/2023 CMP (FEMA LE) ALP phos 52.0 U/L 30.0-1 40.0 normal Not Available [facility] [address] [facility] [address], [place], [address], 12/20/2023 17:10:38 12/20/19 24 12/20/2023 CMP (FEMA LE) calcium 9.3 mg/dL 8.4-10 .5 Not Available [facility] [address] [facility] [address], [place], [address], 12/20/2023 17:10:38 12/20/19 24 12/20/2023 CMP (FEMA LE) sodium 140.0 mmol/ L 136.0- 145.0 Not Available [facility] [address] [facility] [address], [place], [address], 12/20/2023 17:10:38 12/20/19 24 12/20/2023 CMP (FEMA LE) potassium 4.0 mmol/ L 3.5-5. 1 Not Available [facility] [address] [facility] [address], [place], [address], 12/20/2023 17:10:38 12/20/19 24 12/20/2023 CMP (FEMA LE) chloride 106.0 mmol/ L 98.0-1 10.0 normal Not Available [facility] [address] [facility] [address], [place], [address], 12/20/2023 17:10:38 12/20/19 24 12/20/2023 CMP (FEMA LE) C02 28.0 mmol/ L 22.0-3 1.0 Not Available [facility] [address] [address], [place], [address], 12/20/2023 17:10:38 12/20/19 24 12/20/2023 CMP (FEMA LE) anion gap 6.0 calc Not Available [facility] [address] [facility] [address], [place], [address], 12/20/2023 17:10:38 12/20/19 24 12/20/2023 CMP (FEMA LE) osmolality 288.0 calc Not Available [facility] [address] [facility] [address], [place], [address], 12/20/2023 17:10:38 12/20/19 24 12/22/2023 PROGE STERO NE progesterone <0.5 NG/mL normal Refer ence Range s Femal e Folli cular Phase < 1.0 Lutea l Phase 2.6-2 1.5 Post menop ausal < 0.5 Pregn roe 1st Trime ster 4.1-3 4.0 2nd Trime ster 24.0- 76.0 3rd Trime ster 52.0- 302.0 Not Available [employer] [facility] [address] [place], [address], 12/22/2023 22:24:48 12/20/19 24 12/22/2023 ESTRA DIOL estradiol 21 pg/mL normal Refer ence Range Folli cular Phase : 19-14 4 Mid-C ycle: 64-35 7 Lutea l Phase : 56-21 4 Postm enopa usal: < or = 31 Refer ence range estab lishe d on post- puber petra patie nt popul ation . No pre-p ubert al refer ence range estab lishe d using this assay . For any patie nts for whom low Estra diol level s are antic ipate d (e.g. males , pre-p ubert al child edgar and hypog onada l/pos t-men opaus al femal es), the [facility] Estra diol, Ultra sensi tive, LCMSM S assay is recom elisabeth d (orde r code 56831 ). Pleas e note: patie nts being treat ed with the drug fulve stran t (Fasl odex( R)) have demon strat ed signi fican t inter feren ce in immun oassa y metho ds for estra diol measu remen t. The cross react ivity could lead to false ly eleva carmen estra diol test resul ts leadi ng to an inapp ropri ate clini yuridia asses sment of estro gen statu s. [facility] order code 54795 -Estr adiol , Ultra sensi tive LC/MS /MS demon strat es negli gible cross react ivity with fulve stran t. Not Available [employer] [facility] [address] [place], [address], 12/22/2023 22:24:49 12/20/19 24 12/22/2023 FSH AND LH FSH 5.8 mIU/m L normal Refer ence Range Folli cular Phase 2.5-1 0.2 Mid-c ycle Peak 3.1-1 7.7 Lutea l Phase 1.5- 9.1 Postm enopa usal 23.0- 116.3 Not Available [employer] [facility] [address] [place], [address], 12/22/2023 22:24:50 12/20/19 24 12/22/2023 FSH AND LH LH 4.9 mIU/m L normal Refer ence Range Folli cular Phase 1.9-1 2.5 Mid-C ycle Peak 8.7-7 6.3 Lutea l Phase 0.5-1 6.9 Postm enopa usal 10.0- 54.7 Not Available [employer] [facility] [address] [place], [address], 12/22/2023 22:24:50 12/20/19 24 12/22/2023 TESTO STERO NE, TOTAL , MS testosterone , total, MS 21 NG/dL 2-45 For addit ional infor kajal monroy e refer to https ://ed ucati on.qu est[employer]rea[employer]. com/f aq/To Carmelita wood LCMSM S (This link is being provi ded for infor dalton nal/e ducat ional purpo ses only. ) (Note ) This test was devel oped and its aj tical perfo rmanc e nathanael cteri stics have been deter mined by [employer]. It has not been clear ed or appro yuriy by the FDA. This assay has been valid ated pursu ant to the CLIA regul ation s and is used for clini yuridia purpo ses. MDF med fusio n [address] [facility] [address] [facility] [address] [phone] America Darby MD, PhD Not Available [employer] [facility] [address] [place], [address], 12/22/2023 22:24:51 12/20/19 24 12/20/2023 TSH, serum or plasm a TSH 0.67 uIU/m L 0.49-3 .82 Not Available [facility] ([facility]) [address] [place], [address], 12/20/2023 15:12:03 03/27/20 24 03/27/2024 urina lysis , dipst ick Leukocytes Negati ve Not Available [facility] ([facility]) [address] [place], [address], 03/27/2024 15:36:37 03/27/20 24 03/27/2024 urina lysis , dipst ick Nitrite negati ve Not Available [facility] ([facility]) [address] [place], [address], 03/27/2024 15:36:37 03/27/20 24 03/27/2024 urina lysis , dipst ick Urobilinogen .2 Not Available [facility] ([facility]) [address] [place], [address], 03/27/2024 15:36:37 03/27/20 24 03/27/2024 urina lysis , dipst ick Protein Negati ve Not Available [facility] ([facility]) [address] [place], [address], 03/27/2024 15:36:37 03/27/20 24 03/27/2024 urina lysis , dipst ick pH 7.0 Not Available [facility] ([facility]) [address] [place], [address], 03/27/2024 15:36:37 03/27/20 24 03/27/2024 urina lysis , dipst ick Blood Negati ve Not Available [facility] ([facility]) [address] [place], [address], 03/27/2024 15:36:37 03/27/20 24 03/27/2024 urina lysis , dipst ick Specific Myrtle 1.025 Not Available [facility] ( [facility]) [address] [place], [address], 03/27/2024 15:36:37 03/27/20 24 03/27/2024 urina lysis , dipst ick Ketone Negati ve Not Available [facility] ([facility]) [address] [place], [address], 03/27/2024 15:36:37 03/27/20 24 03/27/2024 urina lysis , dipst ick Bilirubin Negati ve Not Available [facility] ([facility]) [address] [place], [address], 03/27/2024 15:36:37 03/27/20 24 03/27/2024 urina lysis , dipst ick Glucose Negati ve Not Available [facility] ([facility]) [address] [place], [address], 03/27/2024 15:36:37 03/27/20 24 03/27/2024 urina lysis , dipst ick Appearance Clear Not Available [facility]) [address] [place], [address], 03/27/2024 15:36:37 03/27/20 24 03/27/2024 urina lysis , dipst ick Color Yellow Not Available [facility] ([facility]) [address] [place], [address], 03/27/2024 15:36:37 03/28/20 24 03/29/2024 CULTU RE, URINE , ROUTI NE culture, urine, routine SEE NOTE CULTU RE, URINE , ROUTI NE Micro Numbe r: [id number] Test Statu s: Final Speci men Sourc e: Urine , clean catch Speci men Quali ty: Adequ ate Resul t: Mixed genit al adriel isola carmen. These super ficia l bacte mere are not indic ative of a urina ry tract infec tion. No furth er organ ism ident ifica tion is warra nted on this speci men. If clini wilfredo indic ated, recol lect clean -catc h, mid-s tream urine and trans tony immed iatel y to Urine Cultu re Trans port Tube. Not Available [facility] [address] [place], [address], 03/29/2024 22:21:08 10/10/19 25 10/09/2024 CMP, serum or plasm a glucose mg/dL 60.0-9 9.0 Not Available [facility] ([facility]) [address] [place] [address], [address], 10/19/2022 13:37:46 10/10/19 25 10/09/2024 CMP, serum or plasm a BUN (blood urea nitrogen) mg/dL 10.0-2 6.0 Not Available [facility] ([facility]) [address] [place] [address], [address], 10/19/2022 13:37:46 10/10/19 25 10/09/2024 CMP, serum or plasm a creatinine (serum) mg/dL 0.4-1. 5 Not Available [facility] ([facility]) [address] [place] [address], [address], 10/19/2022 13:37:46 10/10/19 25 10/09/2024 CMP, serum or plasm a BUN/creatini ne ratio ratio Not Available [facility] ( [facility]) [address] [place] [address], [address], 10/19/2022 13:37:46 10/10/19 25 10/09/2024 CMP, serum or plasm a eGFR calculated Not Available [facility] ([facility]) [address] [place] [address], [address], 10/19/2022 13:37:46 10/10/19 25 10/09/2024 CMP, serum or plasm a total protein g/dL 6.0-8. 5 Not Available [facility] ([facility]) [address] [place], [phone], 10/19/2022 13:37:46 10/10/19 25 10/09/2024 CMP, serum or plasm a total bilirubin mg/dL 0.2-1. 3 Not Available [facility] ([facility]) [address] [place], [phone], 10/19/2022 13:37:46 10/10/19 25 10/09/2024 CMP, serum or plasm a albuminn g/dL 3.5-5. 5 Not Available [facility] ([facility]) [address] [place] [address], [phone], 10/19/2022 13:37:46 10/10/19 25 10/09/2024 CMP, serum or plasm a globulin calc Not Available [facility] ([facility]) [address] [place] [address], [phone], 10/19/2022 13:37:46 10/10/19 25 10/09/2024 CMP, serum or plasm a AST (SGOT) U/L 0.0-46 .0 Not Available [facility] [place]) [address] [place] [address], [address], 10/19/2022 13:37:46 10/10/19 25 10/09/2024 CMP, serum or plasm a altv (SGPT) U/L 13.0-6 9.0 Not Available [facility] ([facility]) [address] [place] [address], [phone], 10/19/2022 13:37:46 10/10/19 25 10/09/2024 CMP, serum or plasm a A/G ratio ratio Not Available [facility] ([facility]) [address] [place], [address], 10/19/2022 13:37:46 10/10/19 25 10/09/2024 CMP, serum or plasm a ALP phos U/L 30.0-1 40.0 Not Available [facility] ([facility]) [address] [place], [address], 10/19/2022 13:37:46 10/10/19 25 10/09/2024 CMP, serum or plasm a calcium mg/dL 8.4-10 .5 Not Available [facility] ([facility]) [address] [place] [address], [address], 10/19/2022 13:37:46 10/10/19 25 10/09/2024 CMP, serum or plasm a sodium mmol/ L 136.0- 145.0 Not Available [facility] ([facility]) [address] [place] [address], [address], 10/19/2022 13:37:46 10/10/19 25 10/09/2024 CMP, serum or plasm a potassium mmol/ L 3.5-5. 1 Not Available [facility] ([facility]) [address] [place] [address], [address], 10/19/2022 13:37:46 10/10/19 25 10/09/2024 CMP, serum or plasm a chloride mmol/ L 98.0-1 10.0 Not Available [facility] ([facility]) [address] [place] [address], [phone], 10/19/2022 13:37:46 10/10/19 25 10/09/2024 CMP, serum or plasm a CO2 mmol/ L 22.0-3 1.0 Not Available [facility] ([facility]) [address] [place] [address], [phone], 10/19/2022 13:37:46 10/10/19 25 10/09/2024 CMP, serum or plasm a anion gap calc Not Available [facility] ([facility]) [address] [place], [address], 10/19/2022 13:37:46 10/10/19 25 10/09/2024 CMP, serum or plasm a osmolality calc Not Available [facility] ([facility]) [address] [place], [address], 10/19/2022 13:37:46 04/22/20 24 04/21/2024 , [facility] ardio gram No observ ation record ed. [facility] [address] [place], [address], 04/25/2024 11:25:18 Result Notes None recorded. Problems Name Problem SNOMED Code Status Onset Date Resolution Date Notes Provider Name and Address Organization Details Recorded Time Acute urinary tract infection 253070903 Active 024 Ivan Nowak MD [address] [place], [address], [facility] 15:42:53 Problem Notes None recorded. Procedures Surgical History Date Name Laterality Status Provider Name and Address Organization Details Recorded Time 04/21/20 24 [address] [facility] 04/25/2024 11:24:45 section completed [facility]Y SU [facility] 08/16/2023 12:50:03 Imaging Results None recorded. Procedure Notes None recorded. Medical Equipment None Reported. Allergies Allergen ID Allergen Name Allergen Category Reaction Reaction Severity Criticality Documentation Date Start Date Code Code System Note Provider Name and Address Organization Details Recorded Time 05333 Macrobid medicatio n itching other mild moderate low 02/17/2023 56181 1 RxNorm React ion: memor y probl ems Emely Pliler [facility] 4 15:34:35 83152 egg white (chicken) allergeni c extract food itching mild low 02/17/2023 68049 6 RxNorm ; Emely Correa [facility] 4 15:34:28 52739 morphine medicatio n itching other mild Not available low 03/27/2024 7052 RxNorm irrit able Emelyjade Correa [facility] 4 15:35:04 Medications Name Sig Start Date Stop Date Status Note LastModified by Organization Details LastModified Time ibuprofen 800 mg tablet Take 1 tablet 3 times a day by oral route as needed for 14 days. 04/10 completed Not Available Not Available Not Available chlorzoxa zone 500 mg tablet Take 1 tablet 3 times a day by oral route as needed for 5 days. 11/07 completed Not Available Not Available Not Available prednison e 20 mg tablet TAKE 2 TABLETS BY MOUTH ONCE DAILY 04/10 completed Not Available Not Available Not Available metronida zole 500 mg tablet Take 1 tablet twice a day by oral route for 7 days. 11/07 completed Not Available Not Available Not Available ciproflox acin 500 mg tablet Take 1 tablet every 12 hours by oral route for 7 days. 2023 active Not Available Not Available Not Avai lable sulfameth oxazole 800 mg-trimet hoprim 160 mg tablet Take 1 tablet every 12 hours by oral route for 5 days. 04/10 completed Not Available Not Available Not Available cefuroxim e axetil 500 mg tablet Take 1 tablet twice a day by oral route for 5 days. 08/16 completed Not Available Not Available Not Available fluticaso ne propionat e 50 mcg/actua tion nasal spray,melanie pension USE 1 SPRAY(S) IN EACH NOSTRIL TWICE DAILY active Not Available Not Available No t Available amoxicill in 500 mg-potass ium clavulana te 125 mg tablet TAKE 1 TABLET BY MOUTH EVERY 12 HOURS FOR 7 DAYS 11/07 completed Not Available Not Available Not Available chlorhexi dine gluconate 0.12 % mouthwash Place 15 mL twice a day by mucous membrane route for 7 days. 11/07 completed Not Available Not Available Not Available sodium chloride daily as needed 04/10 completed Recorded 08/31/19 23 10:20AM by EMANUEL Duarte, Phone Encounte r; Refill Quantity : 0; Not Available Not Available Not Available sodium chloride 1,000 mg soluble tablet TAKE 1 TABLET BY MOUTH ONCE DAILY NEEDED FOR 30 DAYS 11/07 completed Not Available Not Available Not Available Vitals Date Recorded Body height Body mass index (BMI) Body weight Oxygen saturation Oxygen saturation in Arterial blood by Pulse oximetry Heart rate Respiratory rate Systolic And Diastolic Provider Name and Address Organization Details Last Updated DateTime 4 165.1 cm 21.6 kg/m2 44124.0 1 g 98 % 98 % 88 /min 16 /min 120/70 mm[Hg] [facility] 4 12:47:19 Date Recorded Body height Body mass index (BMI) Body weight Oxygen saturation Oxygen saturation in Arterial blood by Pulse oximetry Heart rate Respiratory rate Body temperature Systolic And Diastolic Provider Name and Address Organization Details Last Updated DateTime 4 165.1 cm 23.3 kg/m2 94872.6 5 g 99 % 99 % 77 /min 14 /min 97.1 [degF] 112/82 mm[Hg] Varun Clifton [facility] 4 13:52:03 Date Recorded Body height Body mass index (BMI) Body weight Oxygen saturation Oxygen saturation in Arterial blood by Pulse oximetry Heart rate Respiratory rate Systolic And Diastolic Provider Name and Address Organization Details Last Updated DateTime 4 165.1 cm 23.5 kg/m2 23408.5 2 g 98 % 98 % 88 /min 18 /min 102/68 mm[Hg] [facility] 4 09:54:16 Date Recorded Body height Body mass index (BMI) Body weight Oxygen saturation Oxygen saturation in Arterial blood by Pulse oximetry Heart rate Respiratory rate Body temperature Systolic And Diastolic Provider Name and Address Organization Details Last Updated DateTime 4 165.1 cm 23.6 kg/m2 77386.1 2 g 99 % 99 % 80 /min 18 /min 98 [degF] 122/78 mm[Hg] [facility]UDY [facility] 4 14:39:26 Date Recorded Body height Body mass index (BMI) Body weight Oxygen saturation Oxygen saturation in Arterial blood by Pulse oximetry Heart rate Respiratory rate Body temperature Systolic And Diastolic Provider Name and Address Organization Details Last Updated DateTime 4 165.1 cm 23.5 kg/m2 44841.5 2 g 99 % 99 % 92 /min 16 /min 98.6 [degF] 114/82 mm[Hg] Emely Correa [facility] 4 15:35:27 Social History Question Answer Notes LastModified by Organizat ion Details LastModified Time Tobacco Smoking Status Never Smoker [facility] 08/16/2023 12:49:41 What Is Your Relationship Status? Information not available 08/16/2023 Sex: Unknown Functional Status Question Answer Note LastModified by Organization D etails LastModified Time What is your level of alcohol consumption? None [email or web address] Information not available 08/16/2023 Are you able to care for yourself? Yes Information n ot available 08/16/2023 Mental Status None recorded. Family History Relationship Description Onset Age of this Age Resolved Age Notes LastModified by Organization Details LastModified Time Father Malignant neoplasm of liver Hep C/dece ased age 60 [email or web address] Not available 08/16/2023 12:48:38 Mother Essential hypertension [email or web address] Not available 12:48:52 Mother Chronic hepatitis C [email or web address] Not available 12:49:10 Medical History No medical history recorded. Gynecological HistoryNo gynecological history recorded. Obstetrics History GPAL:G 0 P 0 0 0 0 Past Encounters Encounter ID Performer Location Encounter Start Date Encounter Closed Date Diagnosis/Indication Diagnosis SNOMED-CT Code Diagnosis ICD10 Code Diagnosis Note [id number] LOGANJAYSHYANN COTO [facility] ([facility]) [address] [place] [address] 12/21/2022 16:32:42 01/01/2023 09:21:18 Dysuria 10168075 R30.0 Acute urin gemma tract infection 673489506 N39.0 Start Bactrim BID x5 days, take as prescribed . Encouraged to increase water intake and decrease caffeine and sugary drinks. If still having symptoms after completion of antibiotic s, recommend a urine re-check. Urine was sent for culture. Will call with culture results. Message sent to PCP regarding referral to urology. Not enough documented UTIs at this clinic to qualify for urology referral at this time. If worsening condition or no improvemen t in 3-5 days, recommend returning for re-evaluat ion. Patient verbalized understand ing. Pain in coccyx 36626494 M53.3 X-ray sent to radiology for over read. Will call with results. Encouraged patient to use 800mg ibuprofen TID as needed for pain. Can use ice packs daily. Recommend donut pillow to help with pain. Will follow up pending final x-ray results. If severe pain, loss of bladder/umang wel control, or any numbness occurs, go to ED. Patient verbalized understand ing. [id number] EMANUEL JARAMILLO [facility] ([facility]) [address] [place] [phone] 04/10/2023 11:50:51 04/10/2023 13:24:51 Fatigue 14974456 R53.83 Right lowe r quadrant pain 734617810 R10.31 Yesterday worse than today. Ketonuria 716887900 R82. 4 Nail changes 291875649 L 60.9 Encouraged her to try Kerasol OTC as well. Chronic constipation 236 172766 K59.09 Abnormal t hyroid hormone 998487150 R94.6 Vaginal odor 281804176 N 89.8 [id number] EMANUEL JARAMILLO [facility] ([facility]) [address] [place] [phone] 08/16/2023 11:57:32 08/16/2023 15:21:12 Adult health examination 155848354 Z00.00 [id number] ALISHA DANIELLE [facility] ([facility]) [address] [place] [phone] 10/08/2023 13:31:10 10/08/2023 16:05:31 Dysuria 92697635 R30.0 Urine dip neg today. Culture sent. Bacterial vaginosis 4197 71917 N76.0 Will start treatment for BV while waiting for vaginal swab results. Oral lesion 1252000786 107 K13.70 Started on mouthwash. Discussed to monitor swelling for next 1 week. If the swollen area persists, may need to consider ENT referral. [id number] JESSICA BO [facility] ([facility]) [address] [place] [phone] 11/08/2023 09:38:59 11/08/2023 10:32:01 Mucocele of lower lip 186421695 K13.0 [id number] JESSICA BO [facility] ([facility]) [address] [place] [phone] 12/20/2023 14:09:32 12/20/2023 17:37:18 Pain of breast 53784944 N64.4 If hormones are normal, will consider mammogram or referral to CANDY BAR ATTENDANT Non-menopa usal hot flash 0297063739 13711 R23.2 Comes and goes. 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 [id number] Ivan Nowak MD [facility] ([facility]) [address] [place] [phone] 03/27/2024 15:21:51 03/27/2024 15:58:48 Dysuria 06087446 R30.0 Acute urin gemma tract infection 916041436 N39.0 The patient symptoms we will ahead and treat for UTI. Unsure if Azo has affected the dipstick but it was essentiall y normal. Patient was encouraged to push fluids and start antibiotic s. We will call the patient with culture results when they return. Health Concerns Section Related Observation LastModified by Organization Detai ls LastModified Time None Recorded Concern Status LastModified by Organization Details LastModified Time None Recorded Advance Directives Directive None Recorded Payers Insurance Date Sequence Insurance Name Policy Number Policy Daniel Covered Member ID Daniel Member ID Guarantor Name 03/27/2024 1 JACINTA () Susanajessica Oglesbynell [id number] Susana Ramos 12/20/2023 2 [facility] [id number] Susana Richard [id number] Susana Ramos Notes Date Note Type Note Provider Name and Address Organization Details Recorded Time 08/16/2023 text/html Annual GYNReport ed bypatient.History:no gynecologic complaints Urinary symptoms:no hematuria; no incontinence Vulva:no genital lesion Vagina:normal vaginal discharge Breast:no breast pain; no breast lump; no nipple discharge Sexual complaints:no sexual complaints Preventive measures:encourage self breast examination JESSICA BO [address], [address] [place] [address], [facility], Nora 08/27/2023 14:15:22 10/08/2023 text/html couple weeks ago developed a sweet smell when urinating. no std exposure. no lesions/sores in the genital area. some left pelvic aching. no fevers, vomiting, or back pain. no meds taken for this.sore in mouth couple weeks ago. she bit that area. Punctured it with a needle last night. ALISHA DANIELLE [address], [address], [facility], Nora 10/08/2023 14:50:52 11/08/2023 text/html Skin LesionRepor carmen bypatient.Location: ower lip Quality:sore Severity:mild Duration:4 weeks Associated Symptoms:no fever; no cold symptoms JESSICA BO [address], [address], [facility], Nora 11/08/2023 10:30:22 12/20/2023 text/html Breast PainRepor carmen bypatient.Location:b ilateral Onset/Timing:>1 month Duration:constant; fluctuates with menses Quality:sharp; dull Severity:moderate Associated Symptoms:no fever EMANUEL JARAMILLO [address] [place], [address], [facility], LSofia. 12/26/2023 15:06:25 03/27/2024 text/html Pt reports sympt oms starting 3 days ago. Symptoms include abdominal pain and burning, burning when urinating, voiding small amounts and frequency. Reports history of UTIs. Denies urgency, low back pain, odor or hematuria. Has taken AZO for symptoms. Ivan Nowak MD [address] [place], [address], [facility], LS[facility]ia. 03/27/2024 15:46:36 OBGyn Episode No OBEpisode recorded.
--- OUTSIDE RECORDS SUMMARY | 2025-02-07 16:54 | XMS_ITS | Encounter Summary ---
Author Organization [facility] Address [address] [place] [address] Care Team Providers Care Case Liner Name Role Phone Yossi Apple MD Primary Care Provider [phone] Encounter Details Date Type Department Care Team (Late st Contact Info) Description 12/29/2024 Results Follow-Up [facility] [place] [address] [address] Carina Dodson FNP [address] [address] VAGINOSIS/VAGINITIS PANEL PLUS, HIV DETECTION W/REFLX CONFIRMATION, HSV TYPE 1 AND 2 IGG ANTIBODY, SYPHILIS SEROLOGY W/REFLEX Social History Tobacco Use Types Packs/Day Years Used Date Smoking Tobacco: Never Smokeless Tobacco: Never Alcohol Use Standard Drinks/Week Comments Never 0 (1 standard drink = 0.6 oz pur e alcohol) Comments No Sex and Gender Information Value Date Recorded Sex Assigned at Not on file 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 No STI noted. Your vaginal culture does show some yeast, so I sent a prescription of a on etime dose Diflucan. documented in this encounter Plan of Treatment Not on file documented as of this encounter Visit Diagnoses Not on filedocumented in this encounter Care Teams Case Liner Relationship Specialty Start Date End Date Yossi Apple MD [address] [address] PCP - General Family Practice 05/06/24 documented as of this encounter
--- OUTSIDE RECORDS SUMMARY | 2025-02-07 16:54 | XMS_ITS | Encounter Summary ---
Author Organization [facility] Address [address] [place] [address] Care Team Providers Care Launch Commander [employer] Name Role Phone Yossi Apple MD Primary Care Provider [phone] Encounter Details Date Type Department Care Team (Late st Contact Info) Description 01/30/2025 Results Follow-Up [facility] Medicine [address] [address] Carina Dodson FNP [address] [address] POC URINALYSIS DIPSTICK AUTOMATED, URINE CULTURE Social History Tobacco Use Types Packs/Day Years Used Date Smoking Tobacco: Never Smokeless Tobacco: Never Alcohol Use Standard Drinks/Week Comments Never 0 (1 standard drink = 0.6 oz pur e alcohol) Comments No Sex and Gender Information Value Date Recorded Sex Assigned at Not on file 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 documented in this encounter Plan of Treatment Not on file documented as of this encounter Visit Diagnoses Not on filedocumented in this encounter Care Teams Launch Commander [employer] Relationship Specialty Start Date End Date Yossi Apple MD [address] [place] [address] PCP - General Family Practice 05/06/24 documented as of this encounter
--- OUTSIDE RECORDS SUMMARY | 2025-02-07 16:54 | XMS_ITS | Encounter Summary ---
Author Organization [facility] Address 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
[2025-02-07 16:55] VITALS: BP 103/73; PULSE 90; RESP 16; TEMP 36.6; O2SAT 96; BMI 22.4
--- NOTE | 2025-02-07 17:06 | CTR_ITS ---
PROCEDURE INFORMATION: Exam: CT Abdomen And Pelvis With Contrast Exam date and time: 02/07/2025 5:41 PM Age: 34 years old Clinical indication: Abdominal pain; Localized; Prior surgery; Surgery date: 3-7 days post-operative; Surgery type: Hemorrhoidectomy one week ago. Csection. Tubal. C/O lower abd/rectal pain with constipation post hemorrhoidectomy 1 week ago. ; Additional info: Severe abd pain/constipation, post-op TECHNIQUE: Imaging protocol: Computed tomography of the abdomen and pelvis with contrast. Axial, coronal and sagittal reformatted images were created and reviewed. Radiation optimization: All CT scans at this facility use at least one of these dose optimization techniques: automated exposure control; mA and/or kV adjustment per patient size (includes targeted exams where dose is matched to clinical indication); or iterative reconstruction. Contrast material: OMNI 350; Contrast volume: 100 ml; Contrast route: INTRAVENOUS (IV); COMPARISON: CR XR acute abdomen series [id number] 07/05/2021 3:27 PM RADIATION DOSE METRICS: Total DLP (mGy-cm): 461 FINDINGS: Lungs: Pleural-based right lower lobe calcified granuloma versus hamartoma. Diaphragm: Elevated left hemidiaphragm. Liver: 2 mm low-density lesion in the right hepatic lobe, too small to characterize. Gallbladder and biliary ducts: No radiodense gallstones. No biliary ductal dilatation. Pancreas: Unremarkable. Spleen: Unremarkable. Adrenal glands: Coarse right adrenal calcification, compatible with remote insult. Kidneys and ureters: Nonobstructing right renal calculus. No hydronephrosis. Stomach and bowel: Moderate amount of retained stool in the colon with marked fecal distension of the rectal vault. No obstruction. No bowel wall thickening. No pneumatosis. Appendix: Normal. Intraperitoneal space: No free fluid. No organized fluid collection. No free air. Vasculature: Unremarkable. No aneurysm. Lymph nodes: No pathologically enlarged lymph nodes. Urinary bladder: Mild circumferential urinary bladder wall thickening, likely secondary to underdistention. Reproductive: Unremarkable. Bones/joints: No acute osseous abnormality. Soft tissues: Unremarkable. CT/CT abdomen pelvis w con* [id number] IMPRESSION: 1. Moderate amount of retained stool in the colon with marked fecal distension of the rectal vault, compatible with constipation and fecal impaction. 2. Mild circumferential urinary bladder wall thickening, likely secondary to underdistention. Correlate with urinalysis to exclude cystitis. 3. Additional findings, as above.
[2025-02-07] MEDS: ondansetron 2 mg/ML SDV 2 mL 4 MG IVP (17:25)
[2025-02-07] MEDS: iohexol 350 mg/mL 500 mL Btl (per mL) IV (17:43)
--- NOTE | 2025-02-07 17:57 | ED_ITS ---
HPI - Abdominal Pain 2 General: Chief Complaint: Abdominal Pain Stated Complaint: Unable to use bathroom Time Seen by Provider: 02/07/25 16:56 Source: patient Mode of arrival: ambulatory Limitations: no limitations History of Present Illness: Patient is a 34-year-old female who presents the emergency department complaining of lower abdominal and lower back pain for the past week. At [facility] in [place], a week ago patient had 3 hemorrhoids removed and states that she has not had a normal bowel movement since. She has been taking prune juice and just recently started taking a stool softener at home, but states that she only has small amounts of stool passage of time. She was prescribed narcotic pain medication for home but states she only took 2 of these before getting sick and stopped taking this. She states that the pain is so severe that she is starting to feel nauseous, and has also had issues urinating states that she is currently on antibiotics for a UTI. Denies any fevers at home afebrile at this time and the rest of her vitals are within normal limits. Reporting 10/10 pain. Denies any bleeding from the rectum. She endorses fear of straining for defecation secondary to the pain she is having. MD elicited complaint: abdominal pain Pertinent past history: other (Hemorrhoids) Onset (ago): week(s) Pain Consistency: constant Severity: severe Context: recent surgery/procedure (Hemorrhoidectomy x 3) Associated Symptoms: Reports change in stool character, constipation and nausea; Denies bloating, chills, diarrhea, dysuria, fever(s), hematochezia and vomiting Related Data Previous Rx's ?Medication ?Instructions ?Recorded docusate sodium 100 mg tablet 100 mg PO BID #30 tabs 0 02/07/25 ketorolac 10 mg tablet 10 mg PO Q8H PRN pain #15 ta bs 02/07/25 lidocaine 4 % topical gel 1 applic topical BID PRN krissy n #10 02/07/25 grams mineral oil (Fleet Mineral Oil 118 ml AL DAILY PRN con stipation 02/07/25 enema) #3,192 mL Allergies Allergy/AdvReac Type Severity Reaction Status Date / Time Alpha-Gal Allergy Unknown Verified 02/07/25 17:02 ([id number],3-Gala nitrofurantoin (From AdvReac Mild ADR-Confusi Verified 06/27/22 07:40 Macrobid) on morphine AdvReac Itching Verified 08/01/21 14:49 egg white AdvReac Mild ADR-Itching Uncoded 06/27/22 07:40 Review of Systems 2 General: Reports: 10 or more systems reviewed and unremarkable except in HPI and below Const: Denies: fever(s), chills, change in appetite, change in weight or diaphoresis ENMT: Denies: throat pain or hoarseness Card: Denies: chest pain, palpitations or lightheadedness Resp: Denies: dyspnea, productive cough or wheezing GI: Reports: abdominal pain, nausea, constipation, rectal pain and change in stool character; Denies: vomiting, diarrhea, bloating or hematochezia : Denies: flank pain, difficulty voiding, dysuria, urinary frequency or urinary urgency Musc: Reports: back pain; Denies: neck pain Skin/Breast: Denies: rash or new lesions Neuro: Denies: headache(s) or dizziness PFSH ED 2 PFSH: Medical History Tinea corporis Anxiety Surgical History History of History of tubal ligation Family History Mother Hypertension Father , age 60 Liver cancer Social History Smoking and tobacco/nicotine status: never used tobacco/nicotine Physical Exam 2 Const: COMMON NORMALS: average body habitus, patient oriented x3, no limitations, alert and well nourished GENERAL APPEARANCE: cooperative and in distress ORIENTATION/CONSCIOUSNESS: Yes awake HENMT: COMMON NORMALS: normocephalic, atraumatic, hearing grossly normal bilaterally, external ears normal, Normal external nose present, Normal nasal mucous membranes and turbinates present and moist oral mucous membranes HEAD & SCALP: normocephalic and atraumatic NOSE: Normal external nose present and Normal nasal mucous membranes and turbinates present EXTERNAL EAR: Yes external ears normal Eye: COMMON NORMALS: Equal, round and reactive pupils present, EOMs intact bilaterally, conjunctivae normal and normal visual becker by confrontation C ONJUNCTIVA: Yes conjunctivae normal PUPIL: Yes Equal, round and reactive pupils present Neck/C-Spine: COMMON NORMALS: full ROM, supple, no meningeal signs and no JVD Resp: COMMON NORMALS: normal respiratory effort, No retractions, No use of accessory muscles and clear to auscultation bilaterally AUSCULTATION: clear to auscultation bilaterally, no crackles, no rales, no rhonchi and no wheezes Cardio: COMMON NORMALS: no JVD, regular rate, regular rhythm, S1 normal heart sound present, S2 normal heart sound present, No gallops present (Cardio), No clicks present (Cardio), No murmurs present (Cardio), No rub (Cardio) and Peripheral pulses 2+ throughout RATE: regular rate RHYTHM: regular rhythm HEART SOUNDS: S1 normal heart sound present and S2 normal heart sound present PERIPHERAL PULSES: Peripheral pulses 2+ throughout GI: COMMON NORMALS: Normal to inspection, nondistended, normoactive bowel sounds present, No hepatosplenomegaly present and no masses AUSCULTATION: Yes normoactive bowel sounds PALPATION: No Guarding due to palpation present (GI), No Rigid due to palpation and Yes No hepatosplenomegaly present RECTAL EXAM: deferred OTHER: Mild abdominal distention, hyperactive bowel sounds, lower abdominal tenderness to palpation Evaluation of the rectum reveals evidence of encopresis, no bleeding and sutures appear intact. Normal rectal tone, a couple of small hemorrhoids externally : COMMON NORMALS: Yes no CVA tenderness BLADDER/KIDNEY EXAM: Yes no CVA tenderness Back/Pelvis: COMMON NORMALS: no CVA tenderness OTHER: Bilateral paralumbar tenderness to palpation Extremity: COMMON NORMALS: normal to inspection and full ROM Neuro: COMMON NORMALS: patient oriented x3, moves all extremities, no focal motor deficits and no sensory deficits noted SENSORIUM/ORIENTATION: Yes alert MENINGEAL SIGNS: Yes no meningeal signs Psych: COMMON NORMALS: mental status grossly normal, cooperative and speech normal SPEECH: Yes normal speech Skin: COMMON NORMALS: no rashes or lesions noted GENERAL SKIN EXAM: no rashes or lesions noted Procedures Rectal Disimpaction Indication: fecal impaction Procedural Sedation: No Sedation/Analgesia: other (Lidocaine jelly, Ativan) Technique: manual disimpaction with gloved finger Result: significant stool output Patient Tolerated Procedure: no complications Complications: none Course 2 Vital Signs: Vital signs: Vital Signs Temperature 97.9 F 07/19/25 16:55 Pulse Rate 90 02/07/25 16:55 Respiratory Rate 16 02/07/25 16:55 Blood Pressure 86/49 02/07/25 18:49 Pulse Oximetry 94 02/07/25 18:49 Oxygen Delivery Me thod Room Air 02/07/25 16:55 MDM - Abdominal Pain Medical Decision Making Patient presented with rectal pain, she is status post hemorrhoidectomy x 3 performed in [place]. I attempted to track down records, patient stated she had surgery at [facility] and a record of her being there. Suspect that she was at [facility], though I did not obtain her records until she had been discharged. However on exam there appeared to be no postoperative complications, surgical incision healing well externally. There was evidence of encopresis and she did have mild abdominal distention with abdominal tenderness to palpation diffusely. States that she is also undergoing treatment for a UTI, suspect an element of compression on her bladder from fecal load that is contributory to her pain. We tried Fleet mineral oil enema, she has a history of alpha gal and this limits a lot of medicinal approaches here in the ED. With treatment at home, she states that she has not been treating constipation, and has been 4 weeks since she has had a bowel movement normally. Noted to be hypotensive here, I suspect that this is vagally induced with her straining and I do suspect that element of her lack of bowel movements comes from her fear of straining from pain. Her labs were unremarkable otherwise, and manual fecal disimpaction was required here to alleviate her pain. She also was treated with Toradol she states this did help as well. Topical lidocaine jelly utilized for symptom relief as well as predisimpaction, Ativan given for anxiolysis. I did speak with on-call general surgeon, Dr. Redman, to discuss the patient's case and make sure that there were no contraindications to attempting a postoperative fecal disimpaction, in this case they were not. Patient did tolerate the procedure well, we will begin her on docusate sodium tablets and topical lidocaine jelly also sent to the pharmacy. She will continue to utilize Fleet enemas and MiraLAX, and continue her follow-up plans. She agrees with this plan, is still noting quite a bit of relief of her pain, and general return precautions given. Lab Data 02/07/25 18:11 02/07/25 18:11 Labs/Radiology: Radiology Impressions Abdomen/Pelvis CT 02/07/25 17:06 IMPRESSION: 1. Moderate amount of retained stool in the colon with marked fecal distension of the rectal vault, compatible with constipation and fecal impaction. 2. Mild circumferential urinary bladder wall thickening, likely secondary to underdistention. Correlate with urinalysis to exclude cystitis. 3. Additional findings, as above. Laboratory Results WBC 6.19 10^3/uL (3.29-11.43) 02/07/25 18:11 RBC 3.90 10^6/uL (3.85-5.65) 02/07/25 18:11 Hgb 11.60 g/dL (11.27-16.99) 02/07/25 18:11 Hct 37.4 % (36-47) 02/07/25 18:11 MCV 95.9 fl (85-98) 02/07/25 18:11 MCH 29.7 pg (27-33) 02/07/25 18:11 MCHC 31.0 g/dL (30-55) 02/07/25 18:11 RDW 13.1 % (12.1-15.1) 02/07/25 18:11 Plt Count 233 10^3/cmm (157-399) 02/07/25 18:11 MPV 10.4 fL (7.4-10.4) 02/07/25 18:11 Neut % (Auto) 76.7 % 02/07/25 18:11 Lymph % (Auto) 13.4 % 02/07/25 18:11 [place] % (Auto) 7.6 % 02/07/25 18:11 Eos % (Auto) 1.3 % 02/07/25 18:11 Baso % (Auto) 0.5 % 02/07/25 18:11 Neut # (Auto) 4.75 10^3/uL (1.8-7.7) 02/07/25 18:11 Lymph # (Auto) 0.8 10^3/uL (0.8-4.8) 02/07/25 18:11 [place] # (Auto) 0.5 10^3/uL (0.2-0.9) 02/07/25 18:11 Eos # (Auto) 0.1 10^3/uL (0.0-0.8) 02/07/25 18:11 Baso # (Auto) 0.0 10^3/uL (0.0-0.1) 02/07/25 18:11 Nucleated RBC % (auto) 0 % 02/07/25 18:11 Nucleated RBCs # 0.0 /100WBC 02/07/25 18:11 Sodium 137 mmol/L (136-145) 02/07/25 18:11 Potassium 4.0 mmol/L (3.5-5.1) 02/07/25 18:11 Chloride 103 mmol/L (98-107) 02/07/25 18:11 Carbon Dioxide 23 mmol/L (22-29) 02/07/25 18:11 Anion Gap 15.0 (5-19) 02/07/25 18:11 BUN 13 mg/dL (6-20) 02/07/25 18:11 Creatinine 0.8 mg/dL (0.5-0.9) 02/07/25 18:11 GFR Calculation 81.6 mL/min (90-130) L 02/07/25 18:11 Glucose 99 mg/dL (65-115) 02/07/25 18:11 Calculated Osmolality 284 mOsm/kg (285-295) L 02/07/25 18:11 Lactic Acid 1.4 mmol/L (0.5-2.2) 02/07/25 18:11 Calcium 8.0 mg/dL (8.5-10.5) L 02/07/25 18:11 Total Bilirubin 0.3 mg/dL (0.15-1.2) 02/07/25 18:11 AST 10 U/L (0-32) 02/07/25 18:11 ALT 7 U/L (0-33) 02/07/25 18:11 Alkaline Phosphatase 53 U/L (35-105) 02/07/25 18:11 Total Protein 5.9 g/dL (6.6-8.7) L 02/07/25 18:11 Albumin 3.5 g/dL (3.5-5.2) 02/07/25 18:11 Globulin 2.4 g/dL (1.3-4.6) 02/07/25 18:11 All radiology interpretation(s) finalized by discharge Discharge Plan Discharge Patient Disposition: Home Clinical Impression: Post-op pain Constipation Qualifiers: Constipation type: slow transit constipation Qualified Code(s): K59.01 - Slow transit constipation Condition: Stable Prescriptions: New docusate sodium 100 mg tablet 100 mg PO BID Qty: 30 0RF ketorolac 10 mg tablet 10 mg PO Q8H PRN (Reason: pain) Qty: 15 0RF mineral oil [Fleet Mineral Oil] Enema 118 ml AL DAILY PRN (Reason: constipation) Qty: 3192 0RF Rx Instructions: discard any unused portion lidocaine 4 % gel 1 applic topical BID PRN (Reason: pain) Qty: 10 0RF Discharge Orders: Discharge ED (Routine); Ordered 02/07/25 Ordered By: Reilly Day Referrals: Carina Dodson FNP [Primary Care Provider] Patient Instructions: Pain Management, Patient Portal & Concepcion Instructions Activity Restrictions/Additional Instructions: Hemorrhoidectomy Discharge Instructions Discharge Instructions After Hemorrhoid Surgery and Fecal Impaction Treatment You were treated in the emergency room for a blockage of stool (fecal impaction) and had a recent surgery to remove hemorrhoids (hemorrhoidectomy). Your surgical site looks good, and there were no complications. Please follow these instructions to help you recover safely and avoid future problems. 1. Medications and Pain Control - Use the prescribed topical lidocaine gel as directed to help with rectal pain. - You may use the prescribed Fleet enema with mineral oil at home if you have trouble passing stool, but only as directed. - Take docusate (a stool softener) and polyethylene glycol (MiraLAX) daily to keep your stools soft and prevent constipation. These are important to avoid straining and protect your surgical site. - Toradol (ketorolac) has been prescribed for pain. Take it exactly as directed. Do not take more than prescribed. - Do not use any medications, foods, or products that contain alpha-gal (galactose-?-1,3-galactose), such as beef, pork, larson, venison, or products made from these animals (including gelatin, lard, and some dairy products), due to your allergy. Always check ingredient labels and ask your pharmacist if you are unsure. 2. Bowel Care - Aim for one soft, [id number]-fi-[id number] bowel movement each day. Do not strain or sit on the toilet for a long time. - Drink plenty of fluids (at least 6?8 glasses of water daily) unless your doctor has told you otherwise. - Eat a high-fiber diet (fruits, vegetables, whole grains) to help keep your stools soft. If you have trouble getting enough fiber from food, continue your fiber supplements as directed. - If you do not have a bowel movement for more than two days, or if you feel constipated, use the mineral oil enema as prescribed and contact your doctor if the problem continues. 3. Wound Care and Hygiene - Keep the area around your anus clean and dry. Gently clean with warm water after each bowel movement. Pat dry?do not rub. - You may take warm sitz baths (sitting in a few inches of warm water) for 10?15 minutes several times a day to help with pain and healing. - Avoid using soaps, wipes, or creams that are not prescribed, as these can irritate the area. 4. Activity - Rest as needed, but gentle walking is encouraged to help your bowels move. - Avoid heavy lifting, strenuous exercise, or activities that cause straining until your doctor says it is safe. 5. Allergy Precautions (Alpha-Gal Syndrome) - Strictly avoid all foods and products containing mammalian meat (beef, pork, larson, venison), gelatin, and animal-derived ingredients. - Dairy products, especially high-fat ones like ice cream and cream cheese, may also contain alpha-gal and should be avoided unless cleared by your canvassing manager. - Be aware that some medications, supplements, and processed foods may contain animal-derived ingredients. Always check with your pharmacist or healthcare provider before starting new products. - Take steps to avoid tick bites, as these can worsen your allergy. Wear protective clothing outdoors, use insect repellent, and check for ticks after being outside. 6. When to Seek Medical Attention - Call your doctor or go to the emergency room if you have: - Severe pain not controlled by your medications - Heavy rectal bleeding (more than a few drops) - Fever over 100.4?F (38?C) - Signs of infection (increasing redness, swelling, pus, or foul odor from the surgical site) - Trouble urinating or severe constipation that does not improve with your medications - Any signs of an allergic reaction (hives, swelling, trouble breathing, or feeling faint) 7. Follow-Up - Keep all scheduled follow-up appointments with your surgeon to check your healing and adjust your care as needed. If you have any questions or concerns, contact your healthcare provider. Summary of [place]: - Use all medications as prescribed. - Keep stools soft with fiber, fluids, and stool softeners. - Avoid all alpha-gal?containing foods and products. - Keep the surgical area clean and dry. - Watch for signs of complications or allergic reactions. - Attend all follow-up appointments. Wishing you a smooth and safe recovery. Print Language: Cook Islander Coding Level of Care Code ED Calender Supervisor for [place]
[2025-02-07 18:21] LABS: Hematocrit 37.4 % (36-47); Hemoglobin 11.60 g/dL (11.27-16.99); Mean Corpuscular HGB Conc 31.0 g/dL (30-55); Mean Corpuscular Hemoglobin 29.7 pg (27-33); Mean Corpuscular Volume 95.9 fl (85-98); Nucleated Red Blood Cells % 0 %; Platelet Count 233 10^3/cmm (157-399); Red Blood Count 3.90 10^6/uL (3.85-5.65); White Blood Count 6.19 10^3/uL (3.29-11.43)
[2025-02-07 18:34] LABS: Alanine Aminotransferase 7 U/L (0-33); Albumin Level 3.5 g/dL (3.5-5.2); Alkaline Phosphatase 53 U/L (35-105); Anion Gap 15.0 (5-19); Aspartate Amino Transferase 10 U/L (0-32); Blood Urea Nitrogen 13 mg/dL (6-20); Calcium 8.0 mg/dL (8.5-10.5); Carbon Dioxide 23 mmol/L (22-29); Chloride 103 mmol/L (98-107); Creatinine Clr Calc Pharmacy 90.9451; Globulin 2.4 g/dL (1.3-4.6); Glucose 99 mg/dL (65-115); Osmolality Calculated 284 mOsm/kg (285-295); Potassium 4.0 mmol/L (3.5-5.1); Sodium 137 mmol/L (136-145); Total Protein 5.9 g/dL (6.6-8.7)
[2025-02-07 18:35] LABS: Lactic Sepsis W/Reflex 1.4 mmol/L (0.5-2.2)
[2025-02-07 18:49] VITALS: BP 86/49; O2SAT 94
[2025-02-07] MEDS: lidocaine 2% Urojet 20 mL TOPICAL ×2 (19:51→20:44)
[2025-02-07] MEDS: LORazepam 1 MG/0.5 ML injection IVP (20:43)
[2025-02-07] MEDS: polyethylene glycol 3350 Pkt 17 gm PO (21:59)
== END 2025-02-07 22:02 | disposition home or self-care (01) ==
PROVIDERS: Emergency Provider Physician Assistant; PCP Nurse Practitioner Family
DX: G89.18 Other acute postprocedural pain (principal); R10.30 Lower abdominal pain, unspecified; M54.50 Low back pain, unspecified; K59.01 Slow transit constipation
CPT/HCPCS: 74177; 80053; 83605; 85025; 96374; 96375; 99285; J1885; J2060; J2405; J7030; J9999

== ENCOUNTER 2025-05-15 10:44 | Outpatient (CLI) | payer OTHER, SELFPAY ==
--- NOTE | 2025-05-15 10:50 | US_ITS ---
WS: [id number] RENAL ULTRASOUND HISTORY: RECURRENT UTI COMPARISON: None available. TECHNIQUE: 2-D and color Doppler imaging of the kidney submitted. Right kidney: 10.3 cm x 4.6 cm x 4.2 cm. Cortex: 1.0 cm Normal echogenicity with no hydronephrosis or mass. Left kidney: 9.8 cm x 3.9 cm x 3.9 cm. Cortex: 1.1 cm Normal echogenicity with no hydronephrosis or mass. Aorta: Normal. Urinary Bladder: Normal distention. US/US renal BI* [id number] IMPRESSION: Normal renal ultrasound.
== END 2025-05-15 10:45 | disposition home or self-care (01) ==
LOC: RAD 10:46
PROVIDERS: PCP Nurse Practitioner Family; Visit Provider Nurse Practitioner Family
DX: N39.0 Urinary tract infection, site not specified (principal)
CPT/HCPCS: 76770